=== PATIENT | female | born 1970 | race Caucasian/White ===

== ENCOUNTER 2016-09-01 10:20 | Emergency (ER) | payer OTHER ==
[~2016-09-01] VITALS: Ht 139.7 cm; Wt 59.0 kg
[2016-09-01 10:21] VITALS: TEMP 36.7; Ht 139.7 cm; Wt 59.0 kg
--- NOTE | 2016-09-01 10:50 | EMERGENCY ROOM VISIT NOTE ---
History First contact with patient: 10:27 Chief Complaint: LEG PAIN,LEG INJURY Stated Complaint: RIGHT LEG PAIN-NEAR KNEE AREA History of Present Illness The patient is a 46 year old female who presents to the Emergency Room with complaints of right knee pain. The patient states that she woke up this morning and states she has pain in the right knee and cannot bend it. The patient states that she noticed the lump on the anterior medial aspect of the knee. She denies any redness, warmth or fevers. She denies any injury. She denies any history of knee problems. She rates her discomfort a 9/10. The patient states that she is new to the area and does not have an orthopedist or a family doctor. Review of Systems A 10 system review of systems was completed with positives and pertinent negatives listed in the HPI. Social History Smoking Status: Current Every Day Smoker Housing Status: lives with friends Current/Historical Medications Scheduled Paroxetine (Paxil), 20 MG PO HS Prazosin Hcl (Prazosin), 1 MG PO HS Trazodone Hcl (Trazodone), 50 MG PO HS Scheduled PRN Oxycodone Ir (Roxicodone Ir), 1 TAB PO Q6 PRN for Pain Allergies Coded Allergies: Prochlorperazine (Verified Allergy, Unknown, ANAPHYLAXIS, 09/01/16) "WILL KILL THEM" Physical Exam Vital Signs Date Time Temp Pulse Resp B/P Pulse Ox O2 Delivery O2 Flow Rate FiO2 09/01/16 12:12 55 16 128/82 98 09/01/16 10:21 36.7 50 18 149/78 97 Room Air Physical Exam VITALS: Vitals are noted on the nurse's note and reviewed by myself. Vital signs stable. The patient is afebrile. GENERAL: This is a 46-year-old female, in no acute distress, nondiaphoretic, well-developed well-nourished. SKIN: The skin was without rashes, erythema, or bruising. There is no tenting of the skin. Capillary reflex less than 2 seconds. HEAD: Normocephalic atraumatic. EARS: The external ears are normal in appearance. EYES: Pupils equal round and reactive to light and accommodation. Conjunctivae without injection, sclerae without icterus. Extraocular movements intact. NOSE: Patent, turbinates without inflammation or discharge. MOUTH: Mucous membranes moist. Tonsils are not enlarged. Pharynx without erythema or exudate. Uvula midline. Airway patent. Tongue does not deviate. NECK: Supple without nuchal rigidity. No JVD. HEART: Regular rate and rhythm without murmurs gallops or rubs. LUNGS: Clear to auscultation bilaterally without wheezes, rales or rhonchi.No retractions or accessory muscle use. MUSCULOSKELETAL: No muscle atrophy, erythema, noted. There is a very small area of edema over the medial aspect of the proximal tibia. The patient is able to bend the knee but with much discomfort. The patient yells and lives her leg off the bed with any light palpation to the knee. The remaining extremities are unremarkable. NEURO: Patient was alert and oriented to person place and time. No focal neurological deficits. Medical Decision & Procedures ER Provider Diagnostic Interpretation: [~ rep ct add3]] RIGHT KNEE 3 VIEWS CLINICAL HISTORY: right knee pain Right pain COMPARISON: None. DISCUSSION: The bones and joint spaces appear intact. There is no evidence of fracture, dislocation or bony disease. There is no evidence for soft tissue swelling. IMPRESSION: Negative study. Medications Administered Medications (Trade) Dose Ordered Sig/Dottie Route Start Time Stop Time Status Last Admin Dose Admin Oxycodone HCl (Roxicodone Immediate Rel Tab) 5 mg NOW STAT PO 09/01/16 11:46 09/01/16 11:47 DC 09/01/16 11:59 5 MG ED Course The patient was seen and examined. Previous visits were reviewed. The patient presents with right knee pain. The patient's complaints are completely out of proportion to examination. The patient does not have any erythema, warmth, obvious swelling, ecchymosis to the right knee. She screams with any light touch of the leg. The leg is soft and she does have good movement of the leg. She has sensation. I do not suspect compartment syndrome. An x-ray was obtained does not reveal any acute abnormality. I did order an ultrasound of the lower extremity to evaluate for possible DVT or abdullahi's cyst. The patient went to the ultrasound but states she could not tolerate touching her leg. I did give her an oxycodone. She refuses the ultrasound at this time and states she will return if it worsens. The patient was given a knee immobilizer, crutches and a small prescription for oxycodone. She should contact orthopedics to schedule a follow-up appointment. She should return to the emergency Department with any worsening symptoms. Medical Decision The differential diagnosis includes bursitis, cellulitis, septic joint, ligamentous injury, sprain, strain, DVT, Abdullahi's cyst, among others [facility] Drug Monitoring Program Search Results: patient reviewed within database Drug Monitoring Findings: The patient has had an occasional narcotic prescriptions filled over the last several months but nothing since last year. Impression Primary Impression: Knee pain Departure Information Dispostion Home / Self-Care Condition GOOD Prescriptions Oxycodone Ir (Roxicodone Ir) 5 Mg Tab 1 TAB PO Q6 Y for Pain, #12 TAB For Initial Treatment Prov: Marissa Nicole PA-C 09/01/16 Referrals No Doctor, Assigned (PCP) Carmine Davis D.O. Patient Instructions Knee Pain, My [facility] Additional Instructions Ibuprofen 600 mg every 6-8 hours for moderate pain Oxy IR 1-2 tablets every 4-6 hrs as needed for worse pain. No driving or alcohol use with Oxy IR. Wear the immobilizer when up and about over the next 5-7 days; use crutches with weightbearing as tolerated Contact orthopedics today to schedule a follow-up appointment for further evaluation and management Return with any redness, swelling, warmth, worsening symptoms Problem Qualifiers Primary Impression: Knee pain Laterality: right Chronicity: acute Qualified Codes: M25.561 - Pain in right knee
[2016-09-01] MEDS ORDERED: TRAZ50TA35 PO (11:17)
[2016-09-01] MEDS ORDERED: PARO1TAB27 PO (11:17)
[2016-09-01] MEDS ORDERED: PRAZ1CAP10 PO (11:20)
--- NOTE | 2016-09-01 11:23 | DIAGNOSTIC IMAGING REPORT ---
RIGHT KNEE 3 VIEWS CLINICAL HISTORY: right knee pain Right pain COMPARISON: None. DISCUSSION: The bones and joint spaces appear intact. There is no evidence of fracture, dislocation or bony disease. There is no evidence for soft tissue swelling. IMPRESSION: Negative study. Electronically signed by: Nash Antoine M.D. 09/01/2016 11:22 AM Dictated Date/Time: 09/01/2016 11:21 AM
[2016-09-01] MEDS ORDERED: OXYCODONE HCL IR 5 MG TAB (IMMEDIATE RELEASE) PO STA (11:46)
[2016-09-01] MEDS ORDERED: OXYC1TAB3 PO (11:48)
[2016-09-01 12:12] VITALS: BP 128/82; PULSE 55; O2SAT 98
== END 2016-09-01 12:15 | disposition home or self-care (01) ==
LOC: C.EDB 10:22
DX: M25.561 Pain in right knee (principal); F17.210 Nicotine dependence, cigarettes, uncomplicated; Z79.899 Other long term (current) drug therapy

== ENCOUNTER 2016-10-14 11:59 | Emergency (ER) | payer OTHER ==
[~2016-10-14] VITALS: Ht 139.7 cm; Wt 61.1 kg
[~2016-10-14 11:59] MED LIST: OXYC1TAB3 PO; PARO1TAB27 PO; PRAZ1CAP10 PO; TRAZ50TA35 PO
[2016-10-14 12:06] VITALS: TEMP 36.4; Ht 139.7 cm; Wt 61.1 kg
--- NOTE | 2016-10-14 13:12 | DIAGNOSTIC IMAGING REPORT ---
RIGHT WRIST W/NAVICULAR MIN 3 VIEWS CLINICAL HISTORY: right, eval fx Right trauma. Pain. COMPARISON: None. DISCUSSION: The bones and joint spaces appear intact. There is no evidence of fracture, dislocation or bony disease. There is no evidence for soft tissue swelling. IMPRESSION: Negative study. Electronically signed by: Nash Antoine M.D. 10/14/2016 1:10 PM Dictated Date/Time: 10/14/2016 1:10 PM
[2016-10-14] MEDS ORDERED: HYDR-5688 PO (13:52)
--- NOTE | 2016-10-14 13:53 | EMERGENCY ROOM VISIT NOTE ---
ED Visit Note First contact with patient: 12:12 CHIEF COMPLAINT: Right wrist injury at work today Patient is a [id number] 46-year-old white female who presents to the emergency department for evaluation of right wrist pain. 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 She notes landing on the extended right wrist. She complains of pain in the dorsum of the wrist that she rates a 7/10. This patient complains of moderate constant wrist pain today after a fall. The pain is worse with any movement of the wrist. No other injury. REVIEW OF SYSTEMS: Review of systems as per HPI. All other systems reviewed were negative. At least 6 systems reviewed. PMH: Electronic medical records are reviewed and summarized as above/below. See Problem List. SOCIAL HISTORY: Patient lives at home. Smoker. PHYSICAL EXAM: Vital Signs: Reviewed Nurse's notes. MENTAL STATUS: Alert and oriented. WRIST: Examination of the right wrist does not demonstrate any obvious deformity. Skin is intact. There is no ecchymosis or soft tissue swelling noted. She is tenderness to palpation over the dorsum of the distal radius region, over the radial aspect of the distal radius and in the anatomic snuffbox. There is no pain over the ulnar styloid. No pain in the midshaft of the radius and the ulna. No pain over the proximal radial head and no elbow joint effusion is palpable. She can pronate, supinate and flex and extend at her elbow fully without discomfort. She does have discomfort with wrist extension and flexion. Radial and ulnar pulses are easily palpable. Capillary refills less than 2 seconds. EMERGENCY DEPARTMENT COURSE: X-ray of the right wrist did not show any obvious fracture. Given her anatomic snuffbox tenderness however, she was placed in a thumb spica Ortho-Glass splint and instructed on follow-up with her worker's compensation physician or orthopedic surgery as covered by her worker's compensation insurance. Possibility of an occult scaphoid fracture was discussed with the patient. Differential diagnoses also included sprain, dorsal impaction injury, among others. He was given 1 Munster 5 mg tablet prior to discharge. She rated her pain a 0/10 at discharge. RIGHT WRIST W/NAVICULAR MIN 3 VIEWS CLINICAL HISTORY: right, eval fx Right trauma. Pain. COMPARISON: None. DISCUSSION: The bones and joint spaces appear intact. There is no evidence of fracture, dislocation or bony disease. There is no evidence for soft tissue swelling. IMPRESSION: Negative study. Problem List Medical Problems: (1) Anxiety Status: Chronic (2) Knee pain Status: Resolved (3) Knee pain Status: Resolved Surgical Problems: (1) Status post herniorrhaphy Status: Resolved (2) Status post hysterectomy Status: Resolved Current/Historical Medications Scheduled Paroxetine (Paxil), 20 MG PO HS Prazosin Hcl (Prazosin), 1 MG PO HS Scheduled PRN Hydrocodone/Acetaminophen 5MG/325MG (Munster 5MG/325MG), 1-2 TABLETS PO Q4 PRN for Pain Allergies Coded Allergies: Prochlorperazine (Verified Allergy, Unknown, ANAPHYLAXIS, 10/14/16) "WILL KILL THEM" Vital Signs Date Time Temp Pulse Resp B/P Pulse Ox O2 Delivery O2 Flow Rate FiO2 10/14/16 14:06 66 17 147/102 98 10/14/16 13:51 66 17 147/102 98 Room Air 10/14/16 12:06 36.4 73 18 129/84 96 Room Air Medications Administered Medications (Trade) Dose Ordered Sig/Dottie Route Start Time Stop Time Status Last Admin Dose Admin Acetaminophen/ Hydrocodone Bitart (Munster 5/325 Tab) 1 tab NOW STAT PO 10/14/16 13:54 10/14/16 13:55 DC 10/14/16 14:00 1 TAB Departure Information Impression Primary Impression: Right wrist injury Additional Impressions: Fall Work related injury Prescriptions Hydrocodone/Acetaminophen 5MG/325MG (Munster 5MG/325MG) Tab 1-2 TABLETS PO Q4 Y for Pain, #20 TAB For Initial Treatment Prov: Lindsay Cha PA 10/14/16 Referrals No Doctor, Assigned (PCP) Patient Instructions My [facility] Additional Instructions DO NOT drive, drink alcohol, operate machinery, or perform dangerous activities today. You were given medications in the ER that can affect your ability to safely function or operate a vehicle. Hydrocodone/Acetaminophen (Munster) 5/325 mg: Take 1-2 pills every four hours for breakthrough pain. Avoid alcohol, operating machinery or dangerous equipment, working on ladders or roofs, DRIVING, or situations where being under the influence may be dangerous. It is recommended to use an zfxa-hwm-tiqudow stool softener such as Colace, 100mg twice daily while taking this medication to avoid constipation. Ibuprofen(Motrin, Advil) may be used for fever or pain. Use 600mg every six hours as needed. Take with food. Avoid using more than 2400mg in a 24 hour period. Do not use 2400mg per day for more than three consecutive days without physician direction. Prolonged inappropriate use can lead to stomach upset or ulcers. This medication can be taken if you need to drive, work, or perform activities which may be dangerous when taking narcotic pain medication. (AND/OR) Acetaminophen(Tylenol) may be used for fever or pain. Use 1000mg every six hours as needed. Avoid using more than 3000mg in a 24 hour period. This medication can be taken if you need to drive, work, or perform activities which may be dangerous when taking narcotic pain medication. Ice compresses for 20 minutes at a time four times daily for 2-3 days. Rest and elevate your injury. Do not get the splint wet. If your splint feels excessively tight, you have worsening pain, develop numbness or tingling, or your digits appear blue, loosen the rosalva wrap. Then reapply the rosalva wrap gently without removing the splint. If your symptoms are not quickly relieved return to the ER for re- evaluation. Continue current medications. Return to the ER immediately for any numbness, tingling, severe pain, extreme swelling in the extremity or as needed. Follow-up with orthopedic surgery as covered by your worker's compensation insurance. Problem Qualifiers Primary Impression: Right wrist injury Encounter type: initial encounter Qualified Codes: S69.91XA - Unspecified injury of right wrist, hand and finger(s), initial encounter Additional Impressions: Fall Encounter type: initial encounter Qualified Codes: W19.XXXA - Unspecified fall, initial encounter
[2016-10-14] MEDS ORDERED: HYDROCODONE/ACETAMOPHEN 5/325MG TAB PO STA (13:54)
[2016-10-14 14:06] VITALS: BP 147/102; PULSE 66; O2SAT 98
== END 2016-10-14 14:08 | disposition home or self-care (01) ==
LOC: C.EDB 12:01 → C.EDD 14:08
DX: S69.91XA Unspecified injury of right wrist, hand and finger(s), initial encounter (principal); W01.0XXA Fall on same level from slipping, tripping and stumbling without subsequent striking against object, initial encounter; Y92.511 Restaurant or cafe as the place of occurrence of the external cause; Y99.0 Civilian activity done for income or pay; F41.9 Anxiety disorder, unspecified; Z79.899 Other long term (current) drug therapy; F17.210 Nicotine dependence, cigarettes, uncomplicated

== ENCOUNTER → 2017-02-18 | Outpatient (CLI) | payer OTHER ==
[~2017-02-18] MED LIST changes: +HYDR-5688 PO; -OXYC1TAB3 PO; -TRAZ50TA35 PO
--- NOTE | 2017-02-18 13:03 | DIAGNOSTIC IMAGING REPORT ---
LEFT FOOT MIN 3 VIEWS ROUTINE CLINICAL HISTORY: M79.672 Foot pain, [id number] COMPARISON: None. DISCUSSION: No fractures or dislocations are visualized. There are no erosive or destructive changes. There is a tiny Achilles insertional spur. IMPRESSION: 1. No acute fractures 2. No evidence of erosive disease Electronically signed by: Matt Bravo M.D. 02/18/2017 1:02 PM Dictated Date/Time: 02/18/2017 1:01 PM
--- NOTE | 2017-02-18 13:05 | DIAGNOSTIC IMAGING REPORT ---
LEFT KNEE 1 OR 2 VIEWS ROUTINE HISTORY: 46 years Female M25.569 Knee painM25.362 left knee instability COMPARISON: None available TECHNIQUE: Frontal and lateral views of the left knee FINDINGS: There is no acute fracture, dislocation or significant degenerative change identified involving the left knee. There is a trace knee joint effusion. Negative for radiopaque foreign body. IMPRESSION: Trace knee joint effusion without acute fracture or dislocation. The above report was generated using voice recognition software. It may contain grammatical, syntax or spelling errors. Electronically signed by: Nicolas Lucio M.D. 02/18/2017 1:04 PM Dictated Date/Time: 02/18/2017 1:03 PM
--- NOTE | 2017-02-18 13:05 | DIAGNOSTIC IMAGING REPORT ---
RIGHT FOOT MIN 3 VIEWS ROUTINE CLINICAL HISTORY: FOOT PAIN Right pain. Trauma. COMPARISON: None. DISCUSSION: The bones and joint spaces appear intact. There is no evidence of fracture, dislocation or bony disease. Mild soft tissue edema IMPRESSION: Mild soft tissue edema. No acute bony abnormality. The above report was generated using voice recognition software. It may contain grammatical, syntax or spelling errors. Electronically signed by: Nash Antoine M.D. 02/18/2017 1:03 PM Dictated Date/Time: 02/18/2017 1:02 PM
--- NOTE | 2017-02-18 13:05 | DIAGNOSTIC IMAGING REPORT ---
RIGHT KNEE 1 OR 2 VIEWS ROUTINE CLINICAL HISTORY: 46 years-old Female presenting with bilateral foot and knee pain, fall, "left foot gives out". TECHNIQUE: Frontal and lateral views of the right knee were obtained. COMPARISON: 09/01/2016. FINDINGS: Knee joint congruent. No joint space loss. No significant degenerative change. No acute fracture or malalignment. Trace knee joint effusion may be present. Remaining soft tissues normal. IMPRESSION: 1. No acute osseous injury of the right knee. 2. Trace knee joint effusion. Electronically signed by: Froilan Crenshaw M.D. 02/18/2017 1:04 PM Dictated Date/Time: 02/18/2017 1:02 PM
[2017-02-18 14:34] LABS: MEAN CELL VOLUME 96.1 fL (80-100); MEAN CORPUSCULAR HEMOGLOBIN 32.3 pg (25-34); MEAN CORPUSCULAR HGB CONC 33.6 g/dl (32-36); MEAN PLATELET VOLUME 10.8 fL (7.4-10.4); PLATELET COUNT 369 K/uL (130-400); RED BLOOD COUNT 4.58 M/uL (4.2-5.4); WHITE BLOOD COUNT 8.42 K/uL (4.8-10.8)
[2017-02-18 15:03] LABS: BLOOD UREA NITROGEN 10 mg/dl (7-18); BUN/CREATININE RATIO 12.9 (10-20); CALCIUM 9.5 mg/dl (8.5-10.1); CARBON DIOXIDE 29 mmol/L (21-32); CHLORIDE 107 mmol/L (98-107); CREATININE 0.76 mg/dl (0.60-1.20); GLUCOSE 77 mg/dl (70-99); SODIUM 141 mmol/L (136-145)
[2017-02-18 15:06] LABS: ALKALINE PHOSPHATASE 120 U/L (45-117); ALT/SGPT 44 U/L (12-78); AST/SGOT 33 U/L (15-37); CHOLESTEROL 201 mg/dl (0-200); CHOLESTEROL/HDL RATIO 4.3; HDL CHOLESTEROL 47 mg/dl; LDL CHOLESTEROL CALCULATED 112 mg/dl; TRIGLYCERIDES 212 mg/dl (0-150); VERY LOW DENSITY LIPOPROT CALC 42 mg/dl
== END | disposition home or self-care (01) ==
LOC: C.RAD1850 12:31
PROVIDERS: ATTEND Internal Medicine
DX: M79.672 Pain in left foot (principal); M25.362 Other instability, left knee; M25.569 Pain in unspecified knee

== ENCOUNTER 2017-06-17 10:40 | Emergency (ER) | payer OTHER ==
[~2017-06-17] VITALS: Ht 139.7 cm; Wt 66.0 kg
[~2017-06-17 10:40] MED LIST changes: -HYDR-5688 PO
[2017-06-17 10:44] VITALS: Ht 139.7 cm; Wt 66.0 kg
--- NOTE | 2017-06-17 11:52 | DIAGNOSTIC IMAGING REPORT ---
L FOOT MIN 3 VIEWS ROUTINE CLINICAL HISTORY: Left foot pain COMPARISON: 02/18/2017 DISCUSSION: No fractures or dislocations are visualized. There is a tiny Achilles insertional spur and tiny plantar calcaneal spur. There are no erosive or destructive changes. IMPRESSION: Tiny calcaneal spurs unchanged the preceding study. No fractures dislocations or destructive lesions are visualized. Electronically signed by: Matt Bravo M.D. 06/17/2017 11:51 AM Dictated Date/Time: 06/17/2017 11:50 AM
[2017-06-17] MEDS ORDERED: METH4PAK PO ×2 (11:56→13:11)
[2017-06-17] MEDS ORDERED: TRAM-10 PO ×2 (11:56→13:11)
[2017-06-17 13:35] VITALS: BP 114/75; PULSE 63; TEMP 36.3; O2SAT 95
--- NOTE | 2017-06-17 19:50 | EMERGENCY ROOM VISIT NOTE ---
ED Visit Note First contact with patient: 10:58 Chief Complaint: Left foot pain. History of Present Illness: Ms. Parks is a 47-year-old white female who ambulates into the ED with a fracture boot and cane complaining of left heel pain. Historically patient reports she has been having ongoing pain since January, approximately 4 months ago. She was seen by the PCP and x-rays of her bilateral feet were taken which showed that she had a small calcaneal spur. At that time she was placed in a fracture boot and was instructed on the use of a cane. Patient reports that she has been having increasing pain in the left foot since she was initially evaluated 4 months ago. Currently she describes a burning sensation from the plantar surface of the left calcaneus radiating up into the gastrocnemius. She rates her her discomfort 8/10. Her pain worsens with ambulation and palpation. She has not identified any alleviating factors related to the pain. She has been using xslm-ubu-iwcuerg medications without relief of her discomfort. She denies any associated symptoms including back pain, left lower extremity weakness/numbness/tingling, recent new trauma, swelling, calf redness/warmth, skin eruptions, fevers, palpitations, previous clots, claudication, recent surgery/inactivity/extended travel. Review of Systems: As noted above in history of present illness. 8 body systems were reviewed and found to be negative as noted above. Past Medical History: Unspecified kidney disease, anxiety, status post hysterectomy, hemorrhoidectomy Current Medications: Paxil. Allergies to Medications: Promethazine. Social History: Patient is currently employed; she feels safe in her home environment; she admits to tobacco use. Physical Examination: Vital Signs: Date Time Temp Pulse Resp B/P (MAP) Pulse Ox O2 Delivery O2 Flow Rate FiO2 06/17/17 10:44 36.3 63 18 114/75 95 Room Air GENERAL: 47-year-old female in moderate distress due to pain, nontoxic-appearing , afebrile and hemodynamically stable. Patient is tearful and anxious. NEUROLOGICAL: Awake, alert and oriented to person, place and time. Answering questions appropriately and following commands. SKIN: Warm, dry and pink. No soft tissue eruptions or trauma noted. LEFT LOWER LEG: No gross bony deformity. No tenderness throughout the knee, anterior lower leg, ankle or foot. Moderate tenderness over the plantar surface of the calcaneus and extending superior through the Achilles tendon and distal aspect of the gastrocnemius. I do not appreciate any calf tenderness or cords. There is no swelling or erythema. The skin does not appear cellulitic or infected. Full range of motion in flexion and extension of the knee, plantar flexion, dorsiflexion, inversion and eversion of the ankle and flexion and extension of all toes. Throughout the foot the skin was warm and pink and capillary refill is brisk. She is able to distinguish light sensations through all dermatomes of the foot. ED Course: Patient is assessed as noted above. Patient's medication list was reviewed. Left Foot X-Rays: Were read by myself and the radiologist showing a tiny calcaneal spur unchanged from previous x-rays and no fractures or dislocations. Patient was offered pain medication and refused. Patient was placed on nonweightbearing crutches. Patient was educated about today's findings and instructed on her treatment plan ; she verbalized understanding and agreement with this plan. Clinical Impression: Left calcaneus and Achilles tendon pain. Decision-Making: Initially my differential diagnosis I considered fracture, heel spur, Achilles tendinitis, gastrocnemius strain, Achilles tendon rupture and other causes. Disposition: Patient discharged home in stable condition accompanied by male friend; prior to departure she was reassessed and subjectively reported she was feeling the same. Plan: Comfort measures were discussed with the patient including rest, elevation, nonweight bearing crutch use, alternating 50 mg of Ultram and 650 mg of acetaminophen every 3 hours and a Medrol Dosepak. Patient was encouraged to follow-up with her primary care provider or keep your upcoming appointment with orthopedics for definitive care and treatment. Patient was encouraged return ED for worsening pain, skin redness/swelling, fevers or any new/concerning symptoms.
== END 2017-06-17 12:55 | disposition home or self-care (01) ==
LOC: C.EDB 10:42 → C.EDD 12:55
DX: M79.672 Pain in left foot (principal); Z90.710 Acquired absence of both cervix and uterus; F41.9 Anxiety disorder, unspecified; Z72.0 Tobacco use; Z98.890 Other specified postprocedural states; Z79.899 Other long term (current) drug therapy

== ENCOUNTER → 2017-07-22 | Outpatient (CLI) | payer OTHER ==
[~2017-07-22] MED LIST changes: +CEFD250S3 PO; +CEFD300C2 PO; +CLR10 PO; +CRIS2OIN TOP; +DICL50TA3 PO; +FLUO0.1S12 OPB; +IBUP-1050 PO; +NYSTCRE11 TOP; -PRAZ1CAP10 PO; +PROP10TA7 PO; +TRAM-10 PO; +TRMO115 TOP
--- NOTE | 2017-07-22 11:47 | DIAGNOSTIC IMAGING REPORT ---
L SHOULDER MIN 2 VIEWS ROUTINE CLINICAL HISTORY: M79.603 left shoulder pain COMPARISON: None. DISCUSSION: No fractures or dislocations are visualized. There are no visible periarticular calcifications. The heart appears enlarged. IMPRESSION: 1. No conventional radiographic abnormalities of the left shoulder 2. Suspected cardiomegaly Electronically signed by: Matt Bravo M.D. 07/22/2017 11:46 AM Dictated Date/Time: 07/22/2017 11:45 AM
[2017-07-22 13:19] LABS: HEMOGLOBIN A1C 5.6 % (4.5-5.6)
== END | disposition home or self-care (01) ==
LOC: C.RAD1850 10:36
PROVIDERS: ATTEND Physician Assistant
DX: Z13.1 Encounter for screening for diabetes mellitus (principal); M79.603 Pain in arm, unspecified

== ENCOUNTER → 2017-09-01 | Outpatient (CLI) | payer OTHER ==
[~2017-09-01] MED LIST changes: -CEFD250S3 PO; -CEFD300C2 PO; -CLR10 PO; -CRIS2OIN TOP; -DICL50TA3 PO; -FLUO0.1S12 OPB; +GADAVIST IV PRN; -IBUP-1050 PO; -NYSTCRE11 TOP; -PROP10TA7 PO; -TRMO115 TOP
--- NOTE | 2017-09-01 14:44 | DIAGNOSTIC IMAGING REPORT ---
MRI OF THE LEFT ANKLE/HINDFOOT WITH AND WITHOUT CONTRAST CLINICAL HISTORY: Persistent left ankle and heel pain. Evaluate Achilles tendon and plantar fasciitis. COMPARISON STUDY: Left foot radiographs June 17, 2017. TECHNIQUE: Utilizing 1.5 Magi magnet and dedicated coil, multiplanar, multiecho imaging of the left hind foot and ankle was performed pre and postcontrast administration. Injection of 6.5 cc of Gadavist IV was uneventful. FINDINGS: Talar dome is intact. Alignment of the left ankle is anatomic. There is no suspicious marrow replacement. There is no significant marrow edema. No erosions are identified. No mass or fluid collection is shown adjacent to the left ankle. The extensor, flexor and peroneal tendons are intact. No abnormality of the Achilles tendon is noted. There is no edema adjacent to the plantar fascia. There is minimal posterior and plantar calcaneal spurring. There is no evidence for a calcaneal fracture. Intrinsic ligaments of the left ankle appear intact. IMPRESSION: 1. Minimal posterior and plantar calcaneal spurring. Normal appearance of the Achilles tendon. No edema to suggest plantar fasciitis. 2. No significant internal derangement of the left ankle/hindfoot. Electronically signed by: Jt Quiroz M.D. 09/01/2017 2:43 PM Dictated Date/Time: 09/01/2017 2:19 PM
== END | disposition home or self-care (01) ==
LOC: C.MRI 12:17
PROVIDERS: ATTEND Podiatrist Foot & Ankle Surgery
DX: M76.62 Achilles tendinitis, left leg (principal); R26.2 Difficulty in walking, not elsewhere classified

== ENCOUNTER → 2017-09-22 | Outpatient (CLI) | payer OTHER ==
[~2017-09-22] MED LIST changes: -GADAVIST IV PRN
--- NOTE | 2017-09-22 12:22 | DIAGNOSTIC IMAGING REPORT ---
ENHANCED CT SCAN OF THE LEFT FOOT CT DOSE: CLINICAL HISTORY: M76.62,R26.2 left heel pain TECHNIQUE: The patient was scanned following administration 91 cc Optiray 320. Sagittal and coronal reformatted imaging was performed. A dose lowering technique was utilized adhering to the principles of ALARA. COMPARISON STUDY: MRI of the left hindfoot dated 09/01/2017 FINDINGS: No fractures are visualized. No soft tissue masses are evident. The Achilles tendon is of normal thickness. No bony destructive lesions are visualized. There are no pathologically enhancing lesions. There is a tiny Achilles insertional spur. IMPRESSION: 1. Tiny Achilles insertional spur 2. Otherwise unremarkable CT scan of the left foot Electronically signed by: Matt Bravo M.D. 09/22/2017 12:21 PM Dictated Date/Time: 09/22/2017 12:15 PM
== END | disposition home or self-care (01) ==
LOC: C.CTS 11:45
PROVIDERS: ATTEND Podiatrist Foot & Ankle Surgery
DX: M76.62 Achilles tendinitis, left leg (principal); R26.2 Difficulty in walking, not elsewhere classified

== ENCOUNTER → 2017-10-11 | Outpatient (CLI) | payer OTHER ==
--- NOTE | 2017-10-11 11:36 | DIAGNOSTIC IMAGING REPORT ---
CHEST 2 VIEWS ROUTINE CLINICAL HISTORY: Preoperative evaluation. COMPARISON STUDY: No previous studies for comparison. FINDINGS: Lung volumes are normal. There is no pneumothorax or pleural effusion. Hazy right lower lung opacity likely reflects epicardial fat pad or atelectasis. There is borderline cardiomegaly. Linear left lower lung opacity suggests atelectasis. There is no consolidation or evidence for pulmonary edema. IMPRESSION: 1. No acute cardiopulmonary findings. 2. Borderline cardiomegaly. Electronically signed by: Jt Quiroz M.D. 10/11/2017 11:35 AM Dictated Date/Time: 10/11/2017 11:34 AM
== END | disposition home or self-care (01) ==
LOC: C.RAD 10:34
PROVIDERS: ATTEND Podiatrist Foot & Ankle Surgery
DX: Z01.818 Encounter for other preprocedural examination (principal); I51.7 Cardiomegaly

== ENCOUNTER → 2017-11-02 | Day surgery (SDC) | payer OTHER ==
[2017-10-25 14:12] VITALS: BMI 32.0
--- NOTE | 2017-11-01 16:15 | HISTORY & PHYSICAL EXAMINATION ---
DATE OF ADMISSION: 11/02/2017 PREOPERATIVE HISTORY AND PHYSICAL HISTORY OF PRESENT ILLNESS: A 47-year-old female presents for preoperative evaluation, requesting surgery. Condition is located in the left foot, described as aching, constant, sharp, severe and tender. Condition was noted over a year ago, result of falling. She notes she has had multiple conservative treatments and describes an aching type associated pain. She notes she is unable to work 8-hour days and has had several days off due to discomfort. She notes at times the pain is so severe it wakes her up at night. Past treatments for this include CT, MRI, and radiographs, Cam walker. Due to the nature and severity of the discomfort, she is requesting surgical intervention. Other treatments that have been performed include immobilization, physical therapy, corticosteroid injections and oral medicine with little to no improvement. PAST SURGICAL HISTORY: Hernia repair in 2015, hysterectomy in 2014, and in 1986. PAST MEDICAL HISTORY: Skin disorder, anxiety disorder, depression, and arthritis. MEDICATIONS: Paxil, ____ tramadol, propranolol, ____ nystatin. ALLERGIES: COMPAZINE. FAMILY HISTORY: Unremarkable. SOCIAL HISTORY: The patient admits to tobacco use, history of 2 years of smoking. REVIEW OF SYSTEMS: Unremarkable except chief complaint. PHYSICAL EXAMINATION: VITAL SIGNS: BP 110/60, height 4 feet 11 inches, weight 160 pounds, body mass index 32. CONSTITUTIONAL: The patient appears well-developed and nourished with good attention to grooming and habits. HEAD AND FACE: Head is normocephalic and atraumatic without any gross head, face, or neck masses. EYES: Conjunctival and pupil reaction to light and accommodation are normal. EARS, NOSE, MOUTH, AND THROAT: Unremarkable. NECK: Neck is supple. Trachea is midline without any adenopathy or crepitance palpable. CARDIOVASCULAR: Normal S1, S2 without murmur, gallops, rubs, or clicks noted. Cardiovascular exam is normal. RESPIRATORY: Chest is symmetric. No scars are visible. No port or pacemaker. LUNGS: Clear to auscultation bilaterally and equal. GASTROINTESTINAL: Abdominal organs, bladder, and kidney show no abnormalities, masses, tenderness, or rigidity. LOWER EXTREMITIES: DP palpable. PT palpable. DERMATOLOGIC: No skin rash, subcutaneous nodules, lesions, or ulcers observed. NEUROLOGICAL: Touch, pin, vibratory pain, proprioception sensations are normal. Deep tendon reflexes normal. Epicritic sensation per [place] monofilament 5.07 is intact. MUSCULOSKELETAL: Muscle tone is normal. Muscle strength is 5/5 all groups tested. Decreased ankle joint range of motion knee flexed and extended. The left plantar fascia exhibits prominence pain to palpation plantar medial heel bilaterally. Pain precludes reliable exam, decreased ankle joint range of motion with knee flexed and extended. Nerve conduction reveals unremarkable with no evidence for polyneuropathy, myopathy or lumbosacral radiculopathy in the left leg on 08/17/2017. DATA: MRI from 09/01/2017, left ankle shows minimal posterior and plantar calcaneal spurring, normal appearance of the Achilles tendon. No edema to suggest plantar fasciitis. IMPRESSION: 1. Left heel spur syndrome, plantar fasciitis, left. 2. Achilles tendinitis, left. 3. Difficulty walking. 4. Pain lower extremity. PLAN: Reviewed conservative treatment options and offered conservative treatments consisting of rest, ice, analgesics, nonsteroidal anti-inflammatory drugs, night splints, physical therapy, steroid shots, stretching exercises, and orthotics. Due to nature and severity of the discomfort, she is requesting surgical intervention. SURGICAL PROCEDURE TO BE PERFORMED: Endoscopic plantar fasciotomy, left foot. This will be performed under general anesthesia as an outpatient at the hospital. The procedure, risks and complications fully reviewed with the patient. Consent form, foot diagram illustration reviewed in all their entirety. All the patient's questions answered. Complications were discussed in detail with the patient including pain, infection, swelling that may or may not be excessive, pins and needles feeling, numbness, metatarsalgia, excessive bleeding, delayed or nonhealing bone, delayed or nonhealing skin, enlarged scar, failure of the procedure, reoccurrence or worsening condition which may not require further surgery, adverse reaction to anesthesia, allergic reaction to suture or other implant material. The patient will be required to be in a surgery shoe for a minimum of 1-2 weeks and not return to sneaker for 2-4 weeks depending on postop edema. The patient is aware that this is an elective type procedure and I recommended a second opinion. They stated they understood. Consent form signed with a copy of foot diagram issued to the patient. At the time of the preoperative appointment, prescriptions for Percocet and Keflex were dispensed as well as for a new Cam walker. The patient will return to the office for a postop check or sooner if medically necessary. Instructed to keep dressing clean, dry, and intact until seen at the office.
[~2017-11-02] VITALS: Ht 149.9 cm; Wt 72.7 kg
[~2017-11-02] MED LIST changes: +ATROPINE SULFATE 0.1 MG/ML 5ML SYR IV PRN; +BUPIVACAINE 0.25% 30 ML VIAL ONE; +BUPIVACAINE 0.5 % 5 MG/1 ML MPF 30ML VIAL ONE; +CEFAZOLIN SOD 1000MG/7.5 ML IV PUSH IV ONE; +CLR10 PO; +CRIS2OIN TOP; +DEXAMETHASONE SOD INJ 4 MG/ML VIAL ONE; +DICL50TA3 PO; +EpHEDrine SULFATE INJ 50 MG/ML AMP IV PRN; +FENTANYL CITRATE INJ 50 MCG/1 ML 2 ML VIAL ONE; +FLUO0.1S12 OPB; +IBUP-1050 PO; +LACTATED RINGER'S 1000ML 1,000 ML IV SCH; +LIDOCAINE HCL 2% 2 ML VIAL (20MG/ML) ONE; +MIDAZOLAM HCL 1 MG/ML 2ML VIAL ONE; +NURSING VERBAL MED ORDER ONE; +NYSTCRE11 TOP; +ONDANSETRON INJ 2 MG/ML 2 ML VIAL ONE; +PROP10TA7 PO; +PROPOFOL IV EMULSION 10 MG/ML 20 ML VIAL IV ONE; +ROPIVACAINE 0.5% 5 MG/ML 30 ML VIAL ONE; +SODIUM CHLORIDE 0.9% 1000ML 1,000 ML IV SCH; +TRMO115 TOP
[2017-11-02 05:40] VITALS: BP 106/74; PULSE 65; TEMP 36.5; O2SAT 93; Ht 149.9 cm; Wt 72.7 kg
--- NOTE | 2017-11-02 06:57 | History & Physical Bridge Note ---
H&P Re-Evaluation Bridge Note: I have examined the patient, reviewed the History & Physical and in the interval since the performance of the History & Physical I have noted the following changes of clinical significance: No changes noted
--- NOTE | 2017-11-02 07:00 | Discharge Instructions ---
Discharge Instructions Date of Service Nov 02, 2017. Admission Reason for Admission: Heel Spur Syndrome, Achilles Tendonitis Discharge Discharge Diagnosis / Problem: same as admission reason Discharge Goals Goal(s): Decrease discomfort Activity Recommendations Activity Limitations: as noted below Medications: * Resume previous medications unless instructed by your surgeon. * Take your medications as prescribed. Call our office ([phone]) at any time, if you experience severe pain that does not subside shortly after taking your pain medication. Activity: * You may walk on your operated foot/ankle using the surgical shoe or cast/splint. Do not put any weight on your operated foot/ankle without wearing the surgical shoe or cast sandal.. Special Care: * Keep your bandage clean and dry. Do not remove your bandage unless otherwise instructed. A small amount of blood may appear on the bandage over the surgical site. Call our office ([phone]) if you bandage becomes blood-soaked or wet. * Elevate your operated foot/ankle on pillows, above the level of your heart, as often as possible during the first 2-3 days following surgery. Keep your knee flexed slightly with a pillow under your knee when you elevate your foot/ankle. * Apply a ice bag to your foot/ankle over the operative site for 20-30 minutes out of each hour while you are awake. Do not allow the ice bag to directly contact bare skin. * Avoid bumping or handling any pins visible in your toes. If any pin feels or appears loose, call the office ([phone]). * Take your oral temperature in the morning and at bedtime. Call our office ([phone]) if your temperature rises above 101 degrees Fahrenheit. Call your surgeon's office at ([phone]) for any problems or concerns such as excessive bleeding and/or pain unrelieved by your prescribed pain medications. If you have any questions, please do not hesitate to ask them. Avoid all tobacco products. If you need help to stop smoking, call [facility]IT[facility] at . This is a free call. Follow-up: Follow-up with Dr. Seymour . Current Hospital Diet Patient's current hospital diet: Discharge Diet Recommended Diet: Regular Diet Pending Studies Studies pending at discharge: no Medical Emergencies . Who to Call and When: Medical Emergencies: If at any time you feel your situation is an emergency, please call 911 immediately. . Non-Emergent Contact Non-Emergency issues call your: Primary Care Provider . "Provider Documentation" section prepared by Aviva Krishnan. .
--- NOTE | 2017-11-02 08:10 | [facility] Post Operative Brief Note ---
Immediate Operative Summary Operative Date Nov 02, 2017. Pre-Operative Diagnosis 1. Left heel spur syndrome, plantar fasciitis, left. 2. Achilles tendinitis, left. 3. Difficulty walking. 4. Pain lower extremity Post-Operative Diagnosis 1. Left heel spur syndrome, plantar fasciitis, left. 2. Achilles tendinitis, left. 3. Difficulty walking. 4. Pain lower extremity Procedure(s) Performed Endoscopic plantarfasciotomy left foot Surgeon Dr. Aviva Seymour, D.P.M. Fix[facility] Boarding Room Surgeon(s) None Estimated Blood Loss 0ml Findings Consistent with Post-Op Diagnosis Specimens None per surgeon Anesthesia Type General Complication(s) none
--- NOTE | 2017-11-02 08:53 | OPERATIVE REPORT ---
DATE OF OPERATION: 11/02/2017 PREOPERATIVE DIAGNOSES: Heel spur syndrome, left plantar fasciitis, pain left foot. POSTOPERATIVE DIAGNOSES: Same. PROCEDURE: Endoscopic plantar fasciotomy, left foot. ANESTHESIA: General with regional field block performed by anesthesia. HEMOSTASIS: Pneumatic ankle tourniquet inflated to a level of 250 mmHg for a total tourniquet time of 12 minutes. ESTIMATED BLOOD LOSS: Minimal. MATERIALS: 3-0 Vicryl, 4-0 nylon. HISTOPATHOLOGY: None. INJECTABLES: None. COMPLICATIONS: The patient tolerated the procedure and anesthesia well without complications, transferred to recovery room with vital signs stable and neurovascular status intact. DESCRIPTION OF PROCEDURE: The patient was brought to the OR and placed on the OR table in supine position. Upon completion of regional and general anesthesia by the anesthesia department, a well-padded tourniquet was applied to the left ankle and the extremity was scrubbed, prepped and draped in the usual aseptic fashion. Attention was directed to the left foot where approximately 3.5 cm distal to the posterior aspect of the calcaneus, small incision was made between interruption of the skin lines from the plantar and medial skin on the plantar medial aspect of the left foot. This was carefully deepened with a hemostat to preserve all neurovascular structures and the inferior aspect of the plantar fascia band was identified, cannula was taken along the inferior aspect of the band to the lateral aspect and a lateral incision was made for exchange of the cannula. The cannula was irrigated and cleaned. The camera was placed which visualized a prominent plantar fascia band. This was incised using a hook blade from medial to lateral, the cannula and trocar were replaced for any accessory fibers and some additional accessory fibers were cut. There were pictures taken throughout the case. The prominence of the plantar fascia was no longer prominent. Wound was copiously lavaged with normal saline through the cannula. Closure began of the deep structures using 3-0 Vicryl in a box stitch technique. Skin margins were closed using 4-0 nylon in a simple interrupted fashion and a retention suture fashion simple medially. A dry sterile compressive dressing consisting of Adaptic, 4 x 4's, Debra and an [place] was applied. The patient tolerated the procedure and anesthesia well without complications and transferred to recovery room with vital signs stable and neurovascular status intact. I attest to the content of the Intraoperative Record and any orders documented therein. Any exception s are noted below.
--- NOTE | 2017-11-02 08:58 | Anesthesiology Progress Note ---
Anesthesia Post Op Note Date & Time Nov 02, 2017 at 08:58 Vital Signs Pain Intensity: 0 Vital Signs Past 12 Hours Date Time Temp Pulse Resp B/P (MAP) Pulse Ox O2 Delivery O2 Flow Rate FiO2 11/02/17 08:55 36.4 65 17 119/79 (88) 93 Room Air 11/02/17 08:45 65 15 117/76 (80) 93 Room Air 11/02/17 08:35 67 14 107/69 (90) 98 Oxymask 10 11/02/17 08:25 62 21 118/74 (89) 99 Oxymask 10 11/02/17 08:15 36.6 67 16 134/112 (118) 99 Oxymask 10 11/02/17 05:40 36.5 65 18 106/74 (85) 93 Room Air Notes Mental Status: alert / awake / arousable, participated in evaluation Pt Amnestic to Procedure: Yes Nausea / Vomiting: adequately controlled Pain: adequately controlled Airway Patency, RR, SpO2: stable & adequate BP & HR: stable & adequate Hydration State: stable & adequate Anesthetic Complications: no major complications apparent
[2017-11-02 09:10] VITALS: BP 120/66; PULSE 66; TEMP 36.6; O2SAT 91
[2017-11-02 09:40] VITALS: BP 118/74; PULSE 75; O2SAT 91
[2017-11-02 10:10] VITALS: BP 96/52; PULSE 79; TEMP 36.6; O2SAT 93
== END | disposition home or self-care (01) ==
LOC: C.ACU 04:48
PROVIDERS: ATTEND Podiatrist Foot & Ankle Surgery
DX: M77.32 Calcaneal spur, left foot (principal); M72.2 Plantar fascial fibromatosis; M19.90 Unspecified osteoarthritis, unspecified site; F17.200 Nicotine dependence, unspecified, uncomplicated; F32.9 Major depressive disorder, single episode, unspecified; F41.9 Anxiety disorder, unspecified; Z88.8 Allergy status to other drugs, medicaments and biological substances; Z79.899 Other long term (current) drug therapy; Z90.710 Acquired absence of both cervix and uterus; Z98.890 Other specified postprocedural states

== ENCOUNTER 2018-03-03 13:24 | Emergency (ER) | payer OTHER ==
[~2018-03-03] VITALS: Ht 147.3 cm; Wt 78.0 kg
[~2018-03-03 13:24] MED LIST changes: -ATROPINE SULFATE 0.1 MG/ML 5ML SYR IV PRN; -BUPIVACAINE 0.25% 30 ML VIAL ONE; -BUPIVACAINE 0.5 % 5 MG/1 ML MPF 30ML VIAL ONE; -CEFAZOLIN SOD 1000MG/7.5 ML IV PUSH IV ONE; -DEXAMETHASONE SOD INJ 4 MG/ML VIAL ONE; -EpHEDrine SULFATE INJ 50 MG/ML AMP IV PRN; -FENTANYL CITRATE INJ 50 MCG/1 ML 2 ML VIAL ONE; -LACTATED RINGER'S 1000ML 1,000 ML IV SCH; -LIDOCAINE HCL 2% 2 ML VIAL (20MG/ML) ONE; -MIDAZOLAM HCL 1 MG/ML 2ML VIAL ONE; -NURSING VERBAL MED ORDER ONE; -ONDANSETRON INJ 2 MG/ML 2 ML VIAL ONE; -PROPOFOL IV EMULSION 10 MG/ML 20 ML VIAL IV ONE; -ROPIVACAINE 0.5% 5 MG/ML 30 ML VIAL ONE; -SODIUM CHLORIDE 0.9% 1000ML 1,000 ML IV SCH
[2018-03-03 13:29] VITALS: TEMP 36.7; Ht 147.3 cm; Wt 78.0 kg
[2018-03-03] MEDS ORDERED: ONDANSETRON INJ 2 MG/ML 2 ML VIAL IV STA (14:18)
[2018-03-03] MEDS ORDERED: SODIUM CHLORIDE 0.9% 1000ML 1,000 ML IV STA (14:18)
--- NOTE | 2018-03-03 14:19 | EMERGENCY ROOM VISIT NOTE ---
History Report prepared by Christian: Dalia Paiz Under the Supervision of: Dr. Nura Tierney D.O. First contact with patient: 14:14 Chief Complaint: ABDOMINAL PAIN Stated Complaint: SIDE PAIN Nursing Triage Summary: triage note: Pt reports right lower abd pain x "a couple weeks." pt reports nausea. History of Present Illness The patient is a 47 year old female who presents to the Emergency Room with complaints of constant, worsening R-sided abdominal pain beginning a few weeks ago. She notes her pain radiates to her back, and worsens with pressure. The patient reports some nausea and vomiting. She notes feeling warm, but is unsure if she has a fever or hot flashes. The patient denies any rashes. She states her PCP Dr. Sifuentes referred her to the ED. The patient worsens when her abdomen is touched. She denies any rashes. The patient notes she still has her appendix and gallbladder. She notes she had a hysterectomy in 2014. Source of History: patient Onset: a few weeks ago Position: abdomen (right side) Modifying Factors (Worsening): other (pressure) Associated Symptoms: + nausea, + vomiting, + back pain, No rash Review of Systems See HPI for pertinent positives & negatives. A total of 10 systems reviewed and were otherwise negative. Past Medical & Surgical Medical Problems: (1) Anxiety (2) Knee pain (3) Knee pain Surgical Problems: (1) Status post herniorrhaphy (2) Status post hysterectomy Family History FHx: seizures Social History Smoking Status: Current Every Day Smoker Alcohol Use: none Housing Status: lives with friends Current/Historical Medications Scheduled Cefdinir (Omnicef), 6 ML PO Q12H Crisaborole (Eucrisa), 1 DOSE TOP BID Diclofenac (Voltaren), 50 MG PO Q8H Ibuprofen (Advil), 200 MG PO PRN Loratadine (Claritin), 10 MG PO QAM Paroxetine (Paxil), 20 MG PO HS Propranolol (Inderal), 10 MG PO BID Tramadol (Ultram), 50 MG PO PRN Scheduled PRN Fluorometholone (Ophth) (Fluorometholone), 1 DROP OPB QID PRN for RN' Nystatin/Triamcinolone (Mycogen || ), 1 DOSE TOP TID PRN for RN Triamcinolone Acet (Triamcinolone Acetonide), 1 APPLN TOP BID PRN for PRN Allergies Coded Allergies: Milk (Verified Allergy, Unknown, ANAPHYLAXIS, 03/03/18) Prochlorperazine (Verified Allergy, Unknown, ANAPHYLAXIS, 03/03/18) "WILL KILL THEM" Physical Exam Vital Signs Date Time Temp Pulse Resp B/P (MAP) Pulse Ox O2 Delivery O2 Flow Rate FiO2 03/03/18 16:46 64 136/83 95 03/03/18 15:27 65 127/59 93 Room Air 03/03/18 13:29 36.7 67 18 124/81 94 Room Air Physical Exam GENERAL: Patient is awake, alert, and in no acute distress. Patient is resting comfortably and showing no signs of anxiety EYES: The conjunctivae are clear. The pupils are round and reactive. EARS, NOSE, MOUTH AND THROAT: The nose is without any evidence of any deformity. Mucous membranes are moist. Tongue is midline NECK: The neck is nontender and supple. RESPIRATORY: Normal respiratory effort is noted. There is no evidence of wheezing rhonchi or rales to auscultation. CARDIOVASCULAR: Regular rate and rhythm noted. There no murmurs rubs or gallops normal S1 normal S2 GASTROINTESTINAL: The abdomen is nondistended and soft. RLQ tenderness to palpation. BACK: No midline tenderness or or step-off noted range of motion in flexion extension as well as rotation no signs of muscle spasm noted. MUSCULOSKELETAL/EXTREMITIES: There is no evidence of gross deformity. Full range of motion is noted in the hips and shoulders. SKIN: No pedal edema appreciated NEUROLOGIC: Patient is awake alert and oriented x3. Medical Decision & Procedures ER Provider Diagnostic Interpretation: Radiology results as stated below per my review and radiologist interpretation: ABDOMEN AND PELVIS CT WITHOUT CONTRAST CT DOSE: 846.71 mGy.cm HISTORY: Acute right lower quadrant abdominal pain RLQ Pain TECHNIQUE: Multiaxial CT images of the abdomen and pelvis were performed without contrast. A dose lowering technique was utilized adhering to the principles of ALARA. COMPARISON STUDY: None. FINDINGS: Linear subsegmental pleural based consolidative opacities and groundglass densities of the lung bases favor areas of atelectasis/scarring. Calcified granuloma of the lateral segment right middle lobe. No pneumatosis or pneumoperitoneum. Imaged inferior cardiac chambers are unremarkable. Hepatic steatosis. Mild gallbladder distention. Spleen, pancreas and adrenal glands are unremarkable. Kidneys, ureters and bladder are within normal limits. Uterus appears surgically absent. No adnexal mass lesions. Aorta and IVC are unremarkable. No pathologically enlarged lymph nodes are identified. No bowel obstruction or focal bowel wall thickening. Terminal ileum and appendix appear unremarkable. There is no ascites or mesenteric inflammatory changes. Postsurgical changes of the anterior abdominal wall. Soft tissues and bony structures appear unremarkable. Facet arthropathy about the lower lumbar spine. IMPRESSION: 1. No acute intra-abdominal or intrapelvic abnormality identified. 2. No bowel obstruction or focal bowel wall thickening. Normal appendix. 3. Hepatic steatosis. Electronically signed by: Nicolas Lucio M.D. 03/03/2018 3:11 PM Dictated Date/Time: 03/03/2018 3:06 PM Laboratory Results 03/03/18 14:20 Red Blood Count 4.79, Mean Corpuscular Volume 97.5, Mean Corpuscular Hemoglobin 32.4, Mean Corpuscular Hemoglobin Concent 33.2, Mean Platelet Volume 10.8, Neutrophils (%) (Auto) 66.7, Lymphocytes (%) (Auto) 20.1, Monocytes (%) (Auto) 9.2, Eosinophils (%) (Auto) 3.3, Basophils (%) (Auto) 0.4, Neutrophils # (Auto) 6.30, Lymphocytes # (Auto) 1.90, Monocytes # (Auto) 0.87, Eosinophils # (Auto) 0.31, Basophils # (Auto) 0.04 03/03/18 14:20 Test 03/03/18 14:20 03/03/18 15:26 White Blood Count 9.45 K/uL (4.8-10.8) Red Blood Count 4.79 M/uL (4.2-5.4) Hemoglobin 15.5 g/dL (12.0-16.0) Hematocrit 46.7 % (37-47) Mean Corpuscular Volume 97.5 fL (80-100) Mean Corpuscular Hemoglobin 32.4 pg (25-34) Mean Corpuscular Hemoglobin Concent 33.2 g/dl (32-36) Platelet Count 335 K/uL (130-400) Mean Platelet Volume 10.8 fL (7.4-10.4) Neutrophils (%) (Auto) 66.7 % Lymphocytes (%) (Auto) 20.1 % Monocytes (%) (Auto) 9.2 % Eosinophils (%) (Auto) 3.3 % Basophils (%) (Auto) 0.4 % Neutrophils # (Auto) 6.30 K/uL (1.4-6.5) Lymphocytes # (Auto) 1.90 K/uL (1.2-3.4) Monocytes # (Auto) 0.87 K/uL (0.11-0.59) Eosinophils # (Auto) 0.31 K/uL (0-0.5) Basophils # (Auto) 0.04 K/uL (0-0.2) RDW Standard Deviation 48.8 fL (36.4-46.3) RDW Coefficient of Variation 13.5 % (11.5-14.5) Immature Granulocyte % (Auto) 0.3 % Immature Granulocyte # (Auto) 0.03 K/uL (0.00-0.02) Anion Gap 5.0 mmol/L (3-11) Est Creatinine Clear Calc Drug Dose 70.4 ml/min Estimated GFR () 93.3 Estimated GFR (Non- 80.5 BUN/Creatinine Ratio 13.2 (10-20) Calcium Level 9.2 mg/dl (8.5-10.1) Total Bilirubin 0.3 mg/dl (0.2-1) Aspartate Amino Transf (AST/SGOT) 62 U/L (15-37) Alanine Aminotransferase (ALT/SGPT) 66 U/L (12-78) Alkaline Phosphatase 154 U/L (45-117) Total Protein 8.2 gm/dl (6.4-8.2) Albumin 3.8 gm/dl (3.4-5.0) Globulin 4.4 gm/dl (2.5-4.0) Albumin/Globulin Ratio 0.9 (0.9-2) Lipase 161 U/L (73-393) Urine Color YELLOW Urine Appearance CLOUDY (CLEAR) Urine pH 5.5 (4.5-7.5) Urine Specific Marshall 1.014 (1.000-1.030) Urine Protein NEG (NEG) Urine Glucose (UA) NEG (NEG) Urine Ketones NEG (NEG) Urine Occult Blood NEG (NEG) Urine Nitrite NEG (NEG) Urine Bilirubin NEG (NEG) Urine Urobilinogen NEG (NEG) Urine Leukocyte Esterase MODERATE (NEG) Urine WBC (Auto) >30 /hpf (0-5) Urine RBC (Auto) 0-4 /hpf (0-4) Urine Hyaline Casts (Auto) 1-5 /lpf (0-5) Urine Epithelial Cells (Auto) >30 /lpf (0-5) Urine Bacteria (Auto) 2+ (NEG) Laboratory results per my review. Medications Administered Medications (Trade) Dose Ordered Sig/Dottie Route Start Time Stop Time Status Last Admin Dose Admin Sodium Chloride 1,000 ml @ 999 mls/hr Q1H1M STAT IV 03/03/18 14:18 03/03/18 15:18 DC 03/03/18 14:26 999 MLS/HR Ondansetron HCl (Zofran Inj) 4 mg NOW STAT IV 03/03/18 14:18 03/03/18 14:19 DC 03/03/18 14:26 4 MG Morphine Sulfate (MoRPHine SULFATE INJ) 4 mg Q15M PRN IV 03/03/18 14:30 03/03/18 17:06 DC 03/03/18 14:27 4 MG Cefdinir (Omnicef Cap) 300 mg ONE STAT PO 03/03/18 15:49 03/03/18 15:51 DC 03/03/18 16:25 300 MG ED Course 1412: The patient was evaluated in room A4B. A complete history and physical examination were performed. 1418: Ordered Zofran Inj 4 mg IV, NSS 1,000 ml @ 999 mls/hr IV 1430: Ordred Morphine Sulfate 4 mg IV. 1550: Ordered Cefdinir 300 mg PO. 1551: Upon reevaluation, the patient is feeling better. I discussed the results and treatment plan with her. She verbalized agreement of the treatment plan. The patient was discharged home. Medical Decision Etiologies such as appendicitis, diverticulitis, PUD, biliary pathology, UTI, pancreatitis, obstruction, mesenteric ischemia, aortic pathology, infections, inflammatory bowel disease, renal colic, as well as others were entertained. Nursing notes reviewed. The patient is a 47-year-old female who presented to the emergency department for right-sided abdominal pain. The patient had reproducible right lower quadrant abdominal pain. She was seen by her primary care physician and sent to the emergency department for the possibility of appendicitis. The patient was treated with IV fluids in the emergency department. I discussed the patient 's laboratory and radiographic studies with her. CT did not show any signs of appendicitis. She was found to have signs of urinary tract infection on urinalysis. She was started on antibiotics in the emergency department. She was reevaluated multiple times. She was encouraged to rest and avoid any strenuous activity. She was also encouraged to call her primary care physician to schedule a follow-up appointment. She was also encouraged to return the emergency department immediately if symptoms change worsen or the need arises. Medication Reconcilliation Current Medication List: was personally reviewed by me Blood Pressure Screening Patient's blood pressure: Normal blood pressure Blood pressure disposition: Did not require urgent referral Impression Primary Impression: RLQ abdominal pain Additional Impression: UTI (urinary tract infection) Scribe Attestation The scribe's documentation has been prepared under my direction and personally reviewed by me in its entirety. I confirm that the note above accurately reflects all work, treatment, procedures, and medical decision making performed by me. Departure Information Dispostion Home / Self-Care Prescriptions Cefdinir (OMNICEF) 250 Mg/5 Ml Rachana 6 ML PO Q12H, #85 ML Prov: Nura Tierney, 03/03/18 Referrals Shiva Sifuentes M.D. (PCP) Forms Call Back Authorization, HOME CARE DOCUMENTATION FORM, IMPORTANT VISIT INFORMATION Patient Instructions [facility] Additional Instructions Continue to use Motrin and Tylenol as directed for pain. Continue all other medications as prescribed. Drink plenty clear liquids. Call your family doctor to schedule a follow-up appointment. Problem Qualifiers Additional Impression: UTI (urinary tract infection) Urinary tract infection type: acute cystitis Hematuria presence: without hematuria Qualified Codes: N30.00 - Acute cystitis without hematuria
[2018-03-03 14:30] LABS: BASO % 0.4 %; BASO ABS # 0.04 K/uL (0-0.2); EOS % 3.3 %; EOS ABS # 0.31 K/uL (0-0.5); HEMATOCRIT 46.7 % (37-47); HEMOGLOBIN 15.5 g/dL (12.0-16.0); IG# 0.03 K/uL (0.00-0.02); LYMPH % 20.1 %; MEAN CELL VOLUME 97.5 fL (80-100); MEAN CORPUSCULAR HEMOGLOBIN 32.4 pg (25-34); MEAN CORPUSCULAR HGB CONC 33.2 g/dl (32-36); MEAN PLATELET VOLUME 10.8 fL (7.4-10.4); MONO % 9.2 %; MONO ABS # 0.87 K/uL (0.11-0.59); NEUT % 66.7 %; PLATELET COUNT 335 K/uL (130-400); RED CELL DISTRIBUTION WIDTH CV 13.5 % (11.5-14.5); RED CELL DISTRIBUTION WIDTH SD 48.8 fL (36.4-46.3); WHITE BLOOD COUNT 9.45 K/uL (4.8-10.8)
[2018-03-03] MEDS ORDERED: MoRPHine SULFATE 4 MG/ML 1 ML CARP\\VIAL IV PRN (14:30)
[2018-03-03 14:52] LABS: ALBUMIN 3.8 gm/dl (3.4-5.0); CALCIUM 9.2 mg/dl (8.5-10.1); CREATININE 0.85 mg/dl (0.60-1.20); POTASSIUM 3.9 mmol/L (3.5-5.1); TOTAL PROTEIN 8.2 gm/dl (6.4-8.2)
--- NOTE | 2018-03-03 15:13 | DIAGNOSTIC IMAGING REPORT ---
ABDOMEN AND PELVIS CT WITHOUT CONTRAST CT DOSE: 846.71 mGy.cm HISTORY: Acute right lower quadrant abdominal pain RLQ Pain TECHNIQUE: Multiaxial CT images of the abdomen and pelvis were performed without contrast. A dose lowering technique was utilized adhering to the principles of ALARA. COMPARISON STUDY: None. FINDINGS: Linear subsegmental pleural based consolidative opacities and groundglass densities of the lung bases favor areas of atelectasis/scarring. Calcified granuloma of the lateral segment right middle lobe. No pneumatosis or pneumoperitoneum. Imaged inferior cardiac chambers are unremarkable. Hepatic steatosis. Mild gallbladder distention. Spleen, pancreas and adrenal glands are unremarkable. Kidneys, ureters and bladder are within normal limits. Uterus appears surgically absent. No adnexal mass lesions. Aorta and IVC are unremarkable. No pathologically enlarged lymph nodes are identified. No bowel obstruction or focal bowel wall thickening. Terminal ileum and appendix appear unremarkable. There is no ascites or mesenteric inflammatory changes. Postsurgical changes of the anterior abdominal wall. Soft tissues and bony structures appear unremarkable. Facet arthropathy about the lower lumbar spine. IMPRESSION: 1. No acute intra-abdominal or intrapelvic abnormality identified. 2. No bowel obstruction or focal bowel wall thickening. Normal appendix. 3. Hepatic steatosis. Electronically signed by: Nicolas Lucio M.D. 03/03/2018 3:11 PM Dictated Date/Time: 03/03/2018 3:06 PM
[2018-03-03] MEDS ORDERED: CEFDINIR 300 MG CAP PO STA (15:49)
[2018-03-03] MEDS ORDERED: CEFD300C2 PO (15:51)
[2018-03-03] MEDS ORDERED: CEFD250S3 PO (16:32)
[2018-03-03 16:46] VITALS: BP 136/83; PULSE 64; O2SAT 95
== END 2018-03-03 16:47 | disposition home or self-care (01) ==
LOC: C.EDB 13:25 → C.EDA 16:47
DX: M54.9 Dorsalgia, unspecified (principal); N39.0 Urinary tract infection, site not specified; F17.200 Nicotine dependence, unspecified, uncomplicated; Z79.899 Other long term (current) drug therapy; Z88.8 Allergy status to other drugs, medicaments and biological substances; Z91.011 Allergy to milk products

== ENCOUNTER 2019-03-09 07:22 | Inpatient (IN) ==
[2019-02-15 12:11] LABS: Basophils # (auto) 0.03 K/uL (0-0.2); Basophils % (auto) 0.4 %; Eosinophils % (auto) 2.9 %; Hematocrit (blood only) 46.8 % (37-47); Hemoglobin 15.6 g/dL (12.0-16.0); Immature Granulocytes # (auto) 0.01 K/uL (0.00-0.02); Immature Granulocytes % (auto) 0.1 %; Lymphocytes # (auto) 2.03 K/uL (1.2-3.4); Lymphocytes % (auto) 29.3 %; Mean Corpuscular Hgb Conc 33.3 g/dL (32-36); Mean Corpuscular Volume 99.2 fL (80-100); Mean Platelet Volume 11.3 fL (7.4-10.4); Monocytes # (auto) 0.56 K/uL (0.11-0.59); Monocytes % (auto) 8.1 %; Neutrophils # (auto) 4.09 K/uL (1.4-6.5); Neutrophils % (auto) 59.2 %; Platelet Count 362 K/uL (130-400); RDW Coefficient of Variation 13.8 % (11.5-14.5); RDW Standard Deviation 49.8 fL (36.4-46.3); Red Blood Count 4.72 M/uL (4.2-5.4); White Blood Count 6.92 K/uL (4.8-10.8)
[2019-02-15 12:45] LABS: BUN Creatinine Ratio 12.1 (10-20); Blood Urea Nitrogen 11 mg/dl (7-18); Calcium 9.7 mg/dl (8.5-10.1); Carbon Dioxide 27 mmol/L (21-32); Chloride 109 mmol/L (98-107); Est GFR (African American) 83.1; Est GFR (Non-African American) 71.7; Glucose 80 mg/dl (70-99); Potassium 4.4 mmol/L (3.5-5.1); Sodium 141 mmol/L (136-145)
--- NOTE | 2019-03-01 07:51 | Anesthesiology Consultation ---
Date of Service March 01, 2019 GETA with PNB and 7.0 ETT for previous shoulder arthroscopy 08/2018 Assessment & Plan (1) Encounter for pre-operative examination: Chart Review Chart Review: Acceptable Risk for Surgery and Patient NOT seen in Pre Admission Testing Consults Requested none History Surgery Operation Date: 03/09/19 11:30 Proposed Procedures p Right Shoulder Arthroscopy(Right) - Vincenzo Yao DO s Arthroscopic Superior Capsular Reconstru(Right) - Vincenzo Yao DO Height/Weight Height: 4 ft 7 in Weight: 72.575 kg Allergies Allergy/AdvReac Type Severity Reaction Status Date / Time milk Allergy Unknown ANAPHYLAXIS Verified 08/04/18 08:11 prochlorperazine Allergy Unknown ANAPHYLAXIS Verified 08/04/18 08:11 bee pollen Allergy Anaphylaxis Verified 08/04/18 08:11 Medications Home Medications Medication Instructions Recorded Confirmed Last Taken paroxetine HCl 20 mg PO QPM 04/13/18 02/16/19 05/24/18 propranolol 20 mg PO BID 04/13/18 02/16/19 08/04/18 07:00 aspirin 81 mg PO QPM 07/13/18 02/16/19 Unknown oxycodone-acetaminophen [Percocet] 1 tab PO Q4 PRN #40 tab 08/04/18 02/16/19 Unknown Past Medical History Medical History Anxiety Benign head tremor Cardiomegaly Depression Dry eyes Eczema Migraine Morbid obesity Occipital neuralgia Rheumatoid arthritis Past Family History Family History Other No known health problems Past Surgical History Surgical History H/O ventral hernia repair MARCH 2016 History of section X4 History of foot surgery LEFT FOOT History of tooth extraction History of total abdominal hysterectomy and bilateral salpingo-oophorectomy Hx of shoulder surgery Social History Smoking Status: Current every day smoker tobacco type: cigarettes Smoking cigarettes per day: 4 Do You Dip or Chew Tobacco: No Hx Alcohol Use: No Hx Substance Use: No substance use type: does not use Testing Laboratory Results 02/15/19 10:39 02/15/19 10:39 Electrocardiogram Date: 07/29/18 Findings: + SB @
[~2019-03-09 07:22] MED LIST changes: +BUPIVACAINE 0.25% 30 ML VIAL ONE; +CEFAZOLIN 1000MG 1,000 MG/7.5 ML SYR IV SCH; -CLR10 PO; -CRIS2OIN TOP; -DICL50TA3 PO; +EPINEPHrine INJ 1 MG/ML AMP ONE; +EpINEphrine HCL INJ 1 MG/ML 1ML SYRINGE ONE; -FLUO0.1S12 OPB; -IBUP-1050 PO; +LACTATED RINGER'S 1,000 ML IV SCH; -NYSTCRE11 TOP; -PARO1TAB27 PO; -PROP10TA7 PO; -TRAM-10 PO; -TRMO115 TOP
[2019-03-09] MEDS ORDERED: BUPIVACAINE 0.5 % 5 MG/1 ML MPF 30ML VIAL ONE (07:49)
--- NOTE | 2019-03-09 07:49 | History & Physical Bridge Note ---
Date of Service March 09, 2019 History & Physical Bridge Note I have examined the patient, reviewed the History & Physical and in the interval since the performance of the History & Physical I have noted the following changes of clinical significance: no changes noted
[2019-03-09] MEDS ORDERED: MEPERIDINE HCL 25 MG/ML CARP IV PRN (07:56)
[2019-03-09] MEDS ORDERED: HYDROmorphone INJ 1 MG/ML SYRINGE IV PRN (07:56)
[2019-03-09] MEDS ORDERED: LABETALOL HCL IV 5 MG/ML 20ML IV PRN (07:56)
[2019-03-09] MEDS ORDERED: ATROPINE SULFATE 0.1 MG/ML 10ML SYR IV PRN (07:56)
[2019-03-09] MEDS ORDERED: ePHEDrine sulfate 50 MG/ML AMP IV PRN (07:56)
[2019-03-09] MEDS ORDERED: fentaNYL citrate 100 MCG/2 ML VIAL IV PRN (07:56)
[2019-03-09] MEDS ORDERED: ONDANSETRON INJ 2 MG/ML 2 ML VIAL IV PRN ×2 (07:56→17:02)
[2019-03-09] MEDS ORDERED: PHENYLEPHRINE 100MCG/ML 5ML SYR IV PRN (07:56)
[2019-03-09] MEDS ORDERED: PROPOFOL IV EMULSION 10 MG/ML 20 ML VIAL IV ONE ×2 (08:09→11:14)
[2019-03-09] MEDS ORDERED: DEXAMETHASONE SOD INJ 4 MG/ML VIAL ONE (08:09)
[2019-03-09] MEDS ORDERED: MIDAZOLAM HCL 1 MG/ML 2ML VIAL ONE (08:09)
[2019-03-09] MEDS ORDERED: ONDANSETRON INJ 2 MG/ML 2 ML VIAL ONE ×2 (08:09→12:46)
[2019-03-09] MEDS ORDERED: LIDOCAINE HCL 2% 2 ML VIAL/AMP(20MG/ML) INFIL ONE (08:09)
[2019-03-09] MEDS ORDERED: fentaNYL citrate 100 MCG/2 ML VIAL ONE (08:10)
[2019-03-09] MEDS ORDERED: ePHEDrine sulfate 50 MG/ML SYR ONE (11:14)
[2019-03-09] MEDS ORDERED: GLYCOPYRROLATE 0.2 MG/ML VIAL ONE (11:14)
[2019-03-09] MEDS ORDERED: OXYCODONE/ACETAMINOPHEN 5mg/325mg TAB PO PRN ×2 (12:53)
--- NOTE | 2019-03-09 12:53 | Operative Report ---
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 She is fallen several times since the surgery. Unfortunately she continued to have right shoulder pain. MRI showed a rerupture of the rotator cuff. After failing conservative treatment, she elected to proceed with a superior capsular reconstruction of the right shoulder. Description of Procedure On March 09, 2019 she arrived at [facility] for the above procedure. She was seen in the preoperative holding area and the operative extremity was identified and signed. She was given a preoperative antibiotic and a right interscalene nerve block. She was taken back to the operating room and laid on the table in the supine position. She was put under general anesthesia. She was put into the beachchair position. The right shoulder was prepped and draped in sterile fashion. A timeout was done. The patient and the operative extremity was properly identified. A scope was introduced into a posterior portal. Diagnostic arthroscopy showed no cartilage damage to the humeral head of the glenoid. There was a complete tear of the entire supraspinatus. It was retracted back to the level of the glenoid. The infraspinatus and subscapularis were intact. 2 lateral portals were made. Latonia cannulas were placed in each L lateral portals. A shaver and ablator and a biter were all used to try to remove the previous sutures. The greater tuberosity and the superior rim of the glenoid were then prepared. It was taken down the bleeding bone. A 3.9 mm knotless corkscrew anchor was placed in the posterior glenoid and a 5 5 corkscrew anchor was placed in the anterior glenoid at the base of the coracoid. Also having difficulty with bone quality in this place which is why used a 5.5 mm anchor. A 5.5 mm swivel lock suture anchor was placed in the anterior medial anchor on the greater tuberosity. A 4.75 mm bio composite swivel lock suture anchor was placed in the posterior medial greater tuberosity. Distance between the anchors was then measured. An arthro-Flex graft was then prepared. The graft was then passed through a passport cannula and laid down nicely. All sutures were tied. I was happy with the overall tension. 2 margin convergent sutures were placed anteriorly and one was placed posteriorly. The arm was brought through full range of motion and was happy with the overall tension of the repair. Arthroscopic instruments were then removed from the shoulder. Portal sites were closed with 3-0 nylon. She was then placed in a soft dressing and a regular arm sling. She was then extubated and transferred to a [facility]. She was taken to the postanesthesia care unit in stable condition. She tolerated the procedure well. I attest to the content of the Intraoperative Record and any orders documented therein. Any exceptions are noted below.
--- NOTE | 2019-03-09 13:46 | Anesthesiology Progress Note ---
Date of Service March 09, 2019 Anesthesia Post Procedure Vital Signs Vital Signs: Temp Pulse Pulse Resp BP BP Pulse Ox 03/09/19 13:35 62 21 113/75 96 03/09/19 13:30 63 23 107/79 86 L 03/09/19 13:26 60 20 137/71 95 03/09/19 13:20 62 28 H 125/72 93 03/09/19 13:16 72 19 119/88 96 03/09/19 13:10 66 17 128/92 03/09/19 13:05 65 23 142/93 H 95 03/09/19 13:00 65 16 139/111 H 97 03/09/19 12:55 60 18 151/98 H 99 03/09/19 12:54 36.1 C L 70 16 133/91 97 03/09/19 12:50 68 27 H 133/91 89 L 03/09/19 12:49 79 11 L 03/09/19 09:23 46 L 130/78 98 03/09/19 09:20 53 L 126/88 97 03/09/19 09:18 48 L 114/70 97 03/09/19 09:15 49 L 130/84 96 03/09/19 09:12 48 L 132/67 97 03/09/19 09:11 55 L 95 03/09/19 09:09 49 L 133/85 03/09/19 09:07 51 L 116/66 97 03/09/19 09:00 49 L 03/09/19 08:50 49 L 03/09/19 08:40 52 L 03/09/19 08:30 48 L 03/09/19 08:20 52 L 03/09/19 08:14 57 L 12 03/09/19 07:37 55 L 18 103/43 L 94 Transfer of Care Handoff Completed per policy Notes Mental Status: alert / awake / arousable and participated in evaluation Patient Amnestic to Procedure: Yes Nausea / Vomiting: adequately controlled Pain: adequately controlled Airway Patency, RR, SpO2: stable & adequate BP & HR: stable & adequate Hydration State: stable & adequate Anesthetic Complications: no major complications apparent and Pt Satisfied with anesthetic care Notes: nerve block working well
--- NOTE | 2019-03-09 15:40 | History & Physical Report ---
Date of Service March 09, 2019 Assessment & Plan (1) History of repair of right rotator cuff: We will keep her under observation overnight. I will see her tomorrow morning and plan to discharge her to home on oral pain medications. Present on Admission?: Yes History of Present Illness Chief Complaint: Postoperative right shoulder arthroscopy Primary Care Provider: NO PCP Eugenia is a 48-year-old female who presented my office with a large chronic right rotator cuff tear. She was having severe pain. I attempted an arthroscopic rotator cuff repair 8 months ago but unfortunately she had multiple falls and tore the cuff repair. She came to [facility] today and underwent a superior capsular reconstruction. She does have multiple psychiatric issues. She has a friend is going to stay with her but the friend will be by until tomorrow. There is concerns of her being able to take care of herself at home so she is being admitted for postoperative observation. Allergies Allergy/AdvReac Type Severity Reaction Status Date / Time milk Allergy Unknown ANAPHYLAXIS Verified 03/09/19 07:34 prochlorperazine Allergy Unknown ANAPHYLAXIS Verified 03/09/19 07:34 bee pollen Allergy Anaphylaxis Verified 03/09/19 07:34 Home Medications Home Medications Medication Instructions Recorded Confirmed Type paroxetine HCl 20 mg PO QPM 04/13/18 02/16/19 History propranolol 20 mg PO BID 04/13/18 02/16/19 History aspirin 81 mg PO QPM 07/13/18 02/16/19 History oxycodone-acetaminophen [Percocet] 1 tab PO Q4 PRN #40 tab 08/04/18 02/16/19 Rx ketorolac 10 mg PO Q8H 5 Days #15 tab 03/09/19 Rx Past Med/Surg History Medical History Anxiety Benign head tremor Cardiomegaly Depression Dry eyes Eczema Migraine Morbid obesity Occipital neuralgia Rheumatoid arthritis Surgical History H/O ventral hernia repair MARCH 2016 History of section X4 History of foot surgery LEFT FOOT History of tooth extraction History of total abdominal hysterectomy and bilateral salpingo-oophorectomy Hx of shoulder surgery Family History Other No known health problems Social History Preferred Language: Latvian Communication Ability: Effective Statistics Tutor Required: No Beliefs That Will Affect Care: None Current Living Situation: Personal Care Facility Current Living Situation Comment: lives at [facility] Other Information That Helps Us Care for You: No Feels Safe at Home: Yes Safety Concerns: Feels Safe At This Time Smoking Status: Current every day smoker Tobacco Type: cigarettes ; Cigarettes Per Day: 4 ; Do You Dip or Chew Tobacco: No ; Second Hand Exposure: Yes ; To bacco Cessation Education Requested by Patient: No Hx Alcohol Use: No Hx Substance Use: No Physical Exam Musculoskeletal: She is wearing a right arm sling as instructed. The dressing is clean and dry. Results & Data Vital Signs (Past 12 Hours) Vital Signs Temp Pulse Pulse Resp BP BP Pulse Ox 03/09/19 14:03 36.4 C L 58 L 18 118/75 97 03/09/19 13:45 60 20 107/73 95 03/09/19 13:40 60 16 114/79 96 03/09/19 13:35 62 21 113/75 96 03/09/19 13:30 63 23 107/79 86 L 03/09/19 13:26 60 20 137/71 95 03/09/19 13:20 62 28 H 125/72 93 03/09/19 13:16 72 19 119/88 96 03/09/19 13:10 66 17 128/92 03/09/19 13:05 65 23 142/93 H 95 03/09/19 13:00 65 16 139/111 H 97 03/09/19 12:55 60 18 151/98 H 99 03/09/19 12:54 36.1 C L 70 16 133/91 97 03/09/19 12:50 68 27 H 133/91 89 L 03/09/19 12:49 79 11 L 03/09/19 09:23 46 L 130/78 98 03/09/19 09:20 53 L 126/88 97 03/09/19 09:18 48 L 114/70 97 03/09/19 09:15 49 L 130/84 96 03/09/19 09:12 48 L 132/67 97 03/09/19 09:11 55 L 95 03/09/19 09:09 49 L 133/85 03/09/19 09:07 51 L 116/66 97 03/09/19 09:00 49 L 03/09/19 08:50 49 L 03/09/19 08:40 52 L 03/09/19 08:30 48 L 03/09/19 08:20 52 L 03/09/19 08:14 57 L 12 03/09/19 07:37 55 L 18 103/43 L 94
--- NOTE | 2019-03-09 16:14 | Anesthesiology Progress Note ---
Date of Service March 09, 2019 Subjective Ms. Parks had an uncomplicated intra and postoperative course today after right shoulder surgery. During the discharge process though, it was learned that Ms Parks no longer has anyone living at home with her, as she did for her past surgery. She lives independently, but is associated with a intermediate. Per the caregiver from the home, no one is available to stay with Ms Parks tonkhadar. In addition, the caregiver related that Ms. Parks falls frequently, often requiring assistance. Unfortunately, Ms Parks has an interscalene nerve block in place, incapacitating her entire right arm, and if she falls tonight she will be unable to safely get off the floor to call for help. Discharge paperwork from [facility] clearly states that someone must be available for the first 24 hours after discharge and when I showed this to the caregiver she said that she could not sign the discharge paperwork for the patient. Because we lack a safe or appropriate discharge plan for the patient, I spoke with Dr. Yao who has agreed to admit the patient for overnight observation at the hospital. Ms Parks has a friend coming to stay with her tomorrow who will be able to ensure her safety after this time. Physical Exam Vital Signs: Last Vital Signs Temp 36.4 C L 03/09/19 14:03 Pulse 58 L 03/09/19 14:03 Resp 18 03/09/19 14:03 BP 118/75 03/09/19 14:03 Pulse Ox 97 03/09/19 14:03 Results & Data Medications Administered Cefazolin Sodium (Ancef 1000mg) 1,000 mg in 7.5 mls @ 2.5 mls/min IV PREOP SHELDON; Protocol Stop: 03/09/19 18:00 Last Admin: 03/09/19 09:27 Dose: 2.5 mls/min Documented by: [id number] Lactated Ringer's (Lr) 1,000 mls @ 15 mls/hr IV .Q24H SHELDON Stop: 03/09/19 18:00 Last Admin: 03/09/19 08:06 Dose: 15 mls/hr Documented by: [id number]
[2019-03-09] MEDS ORDERED: HYDROmorphone INJ 0.5 MG/0.5 ML SYR IV PRN (17:02)
[2019-03-09] MEDS ORDERED: NALOXONE HCL 0.4 MG/1 ML VIAL/CARP IV PRN (17:02)
[2019-03-09] MEDS ORDERED: METOCLOPRAMIDE HCL INJ 5 MG/ML 2 ML VIAL IV PRN (17:02)
[2019-03-09] MEDS: SODIUM CHLORIDE 0.9% 1000ML 1,000 ML IV SCH (19:31)
[2019-03-09] MEDS: KETOROLAC TROMETHAMINE 15 MG/ML VIAL IV SCH ×2 (19:36→23:42)
[2019-03-09] MEDS: ASPIRIN 81 MG ECTAB PO SCH (21:23)
[2019-03-09] MEDS: PARoxetine HCl 20 MG TAB PO SCH (21:23)
[2019-03-09] MEDS: PROPRANOLOL HCL 10 MG TAB PO SCH (21:25)
[2019-03-10] MEDS: SODIUM CHLORIDE 0.9% 1000ML 1,000 ML IV SCH (04:10)
[2019-03-10] MEDS: KETOROLAC TROMETHAMINE 15 MG/ML VIAL IV SCH ×2 (05:55→12:10)
[2019-03-10] MEDS: MULTIVITAMIN TAB PO SCH (08:50)
[2019-03-10] MEDS: PROPRANOLOL HCL 10 MG TAB PO SCH ×2 (08:52→21:14)
--- NOTE | 2019-03-10 15:12 | Orthopedic Progress Note ---
Date of Service March 10, 2019 Assessment & Plan (1) History of repair of right rotator cuff: Overall she is doing fairly well. There is still some concerns about her being able to take care of herself at home. Therapy has recommended acute rehab facility. She is currently working with case management. She can be discharged to a rehab facility when medically stable. She will follow-up with orthopedics as scheduled in 2 weeks. Present on Admission?: Yes Subjective Eugenia was seen and examined at bedside this morning. Overall she is doing fairly well. She is not having much pain in the right shoulder. She was able to participate well with physical therapy and Occupational Therapy today. She is in good spirits. She is looking to go to rehab soon. Physical Exam Musculoskeletal: Physical examination of the right shoulder, the dressing is clean and dry. She is active motion of her fingers. She does have some swell ing. She still little bit of numbness around the thumb and index finger. Results & Data Vital Signs (Past 12 Hours) Vital Signs Temp Pulse Pulse Resp BP BP Pulse Ox 03/10/19 11:26 36.4 C L 50 L 18 112/70 92 03/10/19 10:33 92 03/10/19 09:50 03/10/19 08:49 71 99/59 L 93 03/10/19 08:00 36.4 C L 68 18 108/66 91 03/10/19 03:37 93 03/10/19 03:35 36.7 C 68 14 95/57 L 88 L Pulse Ox Pulse Ox Pulse Ox 03/10/19 11:26 03/10/19 10:33 03/10/19 09:50 92 92 93 03/10/19 08:49 03/10/19 08:00 03/10/19 03:37 03/10/19 03:35 PG Care Time/CCT Total # of Minutes Spent Total Time Spent with Patient: Total time spent is greater than 50% in coordination of care (as documented) at patient's floor/unit and/or counseling patient:
[2019-03-10] MEDS: OXYCODONE/ACETAMINOPHEN 5mg/325mg TAB PO PRN (18:14)
[2019-03-10] MEDS: PARoxetine HCl 20 MG TAB PO SCH (21:14)
[2019-03-10] MEDS: ASPIRIN 81 MG ECTAB PO SCH (21:14)
[2019-03-11] MEDS: OXYCODONE/ACETAMINOPHEN 5mg/325mg TAB PO PRN ×4 (00:50→21:07)
--- NOTE | 2019-03-11 07:14 | Orthopedic Progress Note ---
Date of Service March 11, 2019 Assessment & Plan (1) History of repair of right rotator cuff: She is doing fairly well with her right shoulder. She will be seen again by physical therapy today. She is orthopedically stable for discharge when a bed is available. She will follow-up with orthopedics as scheduled in 2 weeks. Present on Admission?: Yes Subjective Eugenia was seen and examined at bedside this morning. Overall she is doing fairly well. She is not having too much pain in the right shoulder. She was able to get some sleep last night. She has no complaints. Physical Exam Musculoskeletal: On physical examination of the left shoulder, the dressing is clean and dry. She is wearing a sling as instructed. She is neurovascular intact. Results & Data Vital Signs (Past 12 Hours) Vital Signs Temp Pulse Pulse Resp BP BP Pulse Ox 03/11/19 07:10 36.4 C L 55 L 18 119/76 92 03/10/19 22:52 36.7 C 59 L 16 104/67 91 03/10/19 21:12 55 L 18 106/70 93 PG Care Time/CCT Total # of Minutes Spent Total Time Spent with Patient: Total time spent is greater than 50% in coordination of care (as documented) at patient's floor/unit and/or counseling patient:
[2019-03-11] MEDS: PROPRANOLOL HCL 10 MG TAB PO SCH ×2 (08:49→21:08)
[2019-03-11] MEDS: MULTIVITAMIN TAB PO SCH (08:49)
[2019-03-11] MEDS: ASPIRIN 81 MG ECTAB PO SCH (21:07)
[2019-03-11] MEDS: PARoxetine HCl 20 MG TAB PO SCH (21:08)
--- NOTE | 2019-03-12 08:33 | Progress Note ---
DATE: 03/12/2019 SUBJECTIVE: A 48-year-old female postop day 3 from right shoulder surgery. She is doing pretty well. Pain is reasonably well controlled. She is really just waiting for placement. No new complaints. OBJECTIVE: VITAL SIGNS: Temperature 36.5. Vital signs stable. GENERAL: Shows a pleasant, middle-aged female. She is sitting up in her bed and looks quite comfortable. EXTREMITIES: Sling is in place. Dressing is clean, dry and intact. No significant drainage. She is neurologically intact. ASSESSMENT: A 48-year-old female postoperative day 3 from a right shoulder surgery, doing pretty well. Pain is controlled. Just waiting for placement. PLAN: We will continue pain control with oral pain meds. She will continue gentle therapy. Plan is to discharge to a [facility] facility tomorrow.
[2019-03-12] MEDS: PROPRANOLOL HCL 10 MG TAB PO SCH ×2 (10:45→20:57)
[2019-03-12] MEDS: MULTIVITAMIN TAB PO SCH (10:45)
[2019-03-12] MEDS: PARoxetine HCl 20 MG TAB PO SCH (20:57)
[2019-03-12] MEDS: ASPIRIN 81 MG ECTAB PO SCH (20:57)
[2019-03-12] MEDS: OXYCODONE/ACETAMINOPHEN 5mg/325mg TAB PO PRN (21:06)
[2019-03-13] MEDS: PROPRANOLOL HCL 10 MG TAB PO SCH (08:18)
[2019-03-13] MEDS: MULTIVITAMIN TAB PO SCH (08:18)
--- NOTE | 2019-03-16 07:56 | Discharge Summary ---
Date of Service March 16, 2019 Admission HPI Per Admitting Provider Eugenia is a 48-year-old female who presented my office with a large chronic right rotator cuff tear. She was having severe pain. I attempted an arthroscopic rotator cuff repair 8 months ago but unfortunately she had multiple falls and tore the cuff repair. She came to [facility] today and underwent a superior capsular reconstruction. She does have multiple psychiatric issues. She has a friend is going to stay with her but the friend will be by until tomorrow. There is concerns of her being able to take care of herself at home so she is being admitted for postoperative observation. Principal Diagnosis Right shoulder superior capsular reconstruction Discharge Data Allergies Allergy/AdvReac Type Severity Reaction Status Date / Time milk Allergy Unknown ANAPHYLAXIS Verified 03/09/19 07:34 prochlorperazine Allergy Unknown ANAPHYLAXIS Verified 03/09/19 07:34 bee pollen Allergy Anaphylaxis Verified 03/09/19 07:34 Consultations 03/09/19 17:02 Consult Case Management - Discharge Planning Routine Procedures Performed Operation Date: 03/09/19 09:50 Actual Procedures p Right Shoulder Arthroscopy(Right) - Vincenzo Yao DO s Superior Capsular Reconstruction(Right) - Vincenzo Yao DO Ordered Studies 03/09/19 07:56 US - OR guided needle placemen Routine Hospital Course (1) History of repair of right rotator cuff: On March 09, 2019 Eugenia arrived at [facility] and underwent a superior capsular reconstruction of her right shoulder. There was concerns about her being able to take care of herself at home. She does have multiple psychiatric issues and she is a patient of [employer]. She was then admitted to the hospital. Her hospital course was relatively uneventful. She was seen by physical therapy and able to do hand wrist and elbow exercises. She did not do any pendulum exercises. Her pain was well controlled throughout her stay. On postop day #4 the case management was able to find placement at a nursing facility. She was then discharged. She will follow-up with orthopedics in 2 weeks. Total Time Total Time Spent Total Time Spent (In Minutes): 20 Discharge Plan Discharge Items Patient Disposition: Transfer Care Home Fac Reason For Visit: RT SHOULDER ARTHROSCOPY Discharge Diagnosis: Right shoulder superior capsular reconstruction Discharge Goals: Decrease discomfort and Improve function Activity: Per 'Additional Instructions' section Non-emergency contact: Surgeon Call non-emergency contact if: your wound has increased redness and your wound has increased drainage Follow-up/Referrals: PCP,NO [Primary Care Provider] - Diet: Regular Addtl Provider Instructions: Shoulder Rotator Cuff Repair Discharge Instructions Activity and Therapy Recommendations: 1. Wear your sling for 6 weeks. The duration will be noted on your physical therapy paperwork given after the surgery. You may remove your sling to shower and to dress, but otherwise, you should be in your sling at all times, including while sleeping 2. The rotator cuff repair is not fragile and you can use your hand while in the sling 3. Physical Therapy should not start until you are out of your sling in 6 weeks Therapy should be about twice a week and last about 16 weeks. I dont want therapy any more than twice a week for 16 weeks but we can discuss going less (once a week) if co-pays are high. 4. The therapy protocol is structured around the biology of the tendon healing to the bone. Doing twice as many exercises will not get you better twice as fast. The motion will come. The goal is to get the tendon to heal to the bone and not get your motion back as fast as possible. Please be patient. 5. You can sleep in any position after the surgery as long as you are in your sling. Most people feel comfortable sleeping in a recliner, but you can sleep in a bed or on a couch if it is more comfortable. Medications: 1. Narcotic You will likely be sent home from the hospital with a prescription for the narcotic pain medication. Take it as needed. Side effects most commonly include nausea and constipation 2. Toradol You will likely be sent home with this anti-inflammatory. It is a post-surgical ibuprofen (NSAID). Take it for 5 days as prescribed. If you have any side effects, such as stomach upset (not nausea), then stop immediately Dressing Care: There will be a plastic dressing on your shoulder. Leave the dressing on for 48 hours. After 48 hours you may remove the dressing and leave the stitches open to air or cover them with band-aids if they are getting caught on your clothing. Showering: You may shower 48 hours after the surgery. Let the soapy shower water run over the stitches and pat them dry. Do not scrub or soak the incisions. Things To Watch For: 1. Drainage from the incision site that occurs more than one week after your surgery. 2. Increased redness at the incision site. 3. Fever above 102 degrees Fahrenheit. 4. Unusual chest pain or shortness of breath. 5. Call [facility] at with any of the above problems Follow-Up Visit: Follow-up with Dr. Yao 2 weeks after your day of surgery. An appointment was probably scheduled when you signed-up for surgery in the office. If you have any questions call Prescriptions: New oxycodone-acetaminophen [Percocet] 5-325 mg tablet 1 tab PO Q4 PRN (Reason: pain) Qty: 40 RF: 0 Continued propranolol 10 mg tablet 20 mg PO BID RF: 0 paroxetine HCl 20 mg tablet 20 mg PO QPM RF: 0 aspirin 81 mg Tablet,Delayed Release (Dr/Ec) 81 mg PO QPM RF: 0 Stand-Alone Forms: Anesthesia/Sedation, Adult, [facility] [address] [facility]/Other Patient Handouts: Surgery Prevent DVT After Discharge Orders: Discharge Order (Routine); Ordered 03/10/19 Ordered By: Vincenzo Yao Skilled Items Patient informed of condition?: Yes DNR: No Discharge Level of Care: Acute rehab Communicable Disease: No Discharge Prognosis: Improving Admission Data Admit Date/Time: 03/09/19 15:48 Attending Provider: Vincenzo Yao Admit Provider: Vincenzo Yao Primary Care Provider: PCP,NO Service: Surgical Services Other Interventions: Discharge Summary Assessment (RN) Last Done: 03/13/19 11:15 DC Date/Time DO NOT enter until pt leaves facility: 03/13/19 12:37
== END 2019-03-13 12:37 | DRG 501 ==
LOC: SURCTR 07:22 → 3N 15:48
DX: Z68.41 Body mass index [BMI] 40.0-44.9, adult; F17.210 Nicotine dependence, cigarettes, uncomplicated; Z91.030 Bee allergy status; Z79.899 Other long term (current) drug therapy; E66.01 Morbid (severe) obesity due to excess calories; Z91.011 Allergy to milk products; Z98.890 Other specified postprocedural states; F32.9 Major depressive disorder, single episode, unspecified; W19.XXXA Unspecified fall, initial encounter; Z88.8 Allergy status to other drugs, medicaments and biological substances; G43.909 Migraine, unspecified, not intractable, without status migrainosus; Z79.82 Long term (current) use of aspirin; F41.9 Anxiety disorder, unspecified; S46.011A Strain of muscle(s) and tendon(s) of the rotator cuff of right shoulder, initial encounter

== ENCOUNTER 2020-07-19 07:27 | Observation (INO) ==
--- NOTE | 2020-06-10 12:33 | PAT Medication Instructions ---
Medication Instructions Date of Service June 10, 2020 Home Medications Medication Instructions Recorded rizatriptan 10 mg disintegrating 10 mg PO .COMPLEX 30 Days #9 tab 07/12/19 tablet diclofenac sodium 1 % topical gel 4 gm TOP QID PRN #100 gm 01/16/20 cyclobenzaprine 5 mg tablet 5 mg PO Q12H #60 tab 01/23/20 propranolol 10 mg tablet 10 mg PO BID 30 Days #60 tab 02/09/20 colloidal oatmeal 1 % topical cream See Rx Instructions TOP BID #226 gm 02/14/20 meloxicam 7.5 mg tablet 7.5 mg PO DAILY PRN #30 tab 05/23/20 aspirin 81 mg PO QPM rizatriptan 10 mg disintegrating tablet 10 mg PO .COMPLEX diclofenac sodium 1 % topical gel 4 gm TOP QID PRN cyclobenzaprine 5 mg tablet 5 mg PO Q12H propranolol 10 mg tablet 10 mg PO BID colloidal oatmeal 1 % topical cream See Rx Instructions TOP BID meloxicam 7.5 mg tablet 7.5 mg PO DAILY PRN paroxetine HCl 10 mg tablet 10 mg PO PM hydroxyzine pamoate 25 mg PO HS loratadine 10 mg PO PM ASK your surgeon for instructions meloxicam 7.5 mg tablet 7.5 mg PO DAILY PRN ASK your prescriber and surgeon aspirin 81 mg PO QPM STOP taking 24 hours before surgery diclofenac sodium 1 % topical gel 4 gm TOP QID PRN colloidal oatmeal 1 % topical cream See Rx Instructions TOP BID Take morning of surgery With a small sip of water, OTHERWISE NOTHING TO EAT OR DRINK AFTER MIDNIGHT: rizatriptan 10 mg disintegrating tablet 10 mg PO (if needed) propranolol 10 mg tablet 10 mg PO BID Take evening before surgery rizatriptan 10 mg disintegrating tablet 10 mg PO (if needed) cyclobenzaprine 5 mg tablet 5 mg PO Q12H propranolol 10 mg tablet 10 mg PO BID paroxetine HCl 10 mg tablet 10 mg PO PM hydroxyzine pamoate 25 mg PO HS loratadine 10 mg PO PM Other Notes If you have any questions please call us at [phone] or [phone] or [phone] or [phone]
--- NOTE | 2020-06-14 09:34 | Anesthesiology Consultation ---
Date of Service June 14, 2020 Assessment & Plan (1) Encounter for pre-operative examination: COVID Status: As of 06/14 assessment, patient denies travel to endemic area, known exposure/sick contacts, or symptoms of COVID19. Patient instructed that they and their household members must follow strict social distancing guidelines, wear a mask in public and avoid travel/events/gatherings for 14 days prior to surgery. Preoperative COVID19 testing to be completed prior to surgery per surgeon's arrangements. Patient made aware to self-isolate as much as possible between COVID testing and surgery. Chart Review Chart Review: Acceptable Risk for Surgery (pending surgeon-ordered PCP clearance) and Patient seen in Pre Admission Testing Teaching & Discussion Instructed NPO after midnight before surgery, except medications with 15 cc of water. Medication instructions provided according to the PAT guidelines. History Surgery Operation Date: 07/19/20 10:40 Proposed Procedures p Left Ankle Arthroscopy SYnovectomy - Carmine Davis DO s Open Brostrom Procedure with Arthrex Internal Brace, Excision Avulsion Fracture Lateral Malleolus - Carmine Davis DO Height/Weight Height: 4 ft 7 in Weight: 83.2 kg Allergies Allergy/AdvReac Type Severity Reaction Status Date / Time milk Allergy Unknown ANAPHYLAXIS Verified 06/06/20 09:47 prochlorperazine Allergy Unknown ANAPHYLAXIS Verified 06/06/20 09:47 bee pollen Allergy Anaphylaxis Verified 06/06/20 09:47 Medications Home Medications Medication Instructions Recorded Confirmed Last Taken aspirin 81 mg PO QPM 07/13/18 06/06/20 03/02/19 rizatriptan 10 mg disintegrating 10 mg PO .COMPLEX 30 Days #9 tab 07/12/19 06/06/20 Unknown tablet diclofenac sodium 1 % topical gel 4 gm TOP QID PRN #100 gm 01/16/20 06/06/20 Unknown cyclobenzaprine 5 mg tablet 5 mg PO Q12H #60 tab 01/23/20 06/06/20 Unknown propranolol 10 mg tablet 10 mg PO BID 30 Days #60 tab 02/09/20 06/06/20 Unknown colloidal oatmeal 1 % topical cream See Rx Instructions TOP BID #226 gm 02/14/20 06/06/20 Unknown meloxicam 7.5 mg tablet 7.5 mg PO DAILY PRN #30 tab 05/23/20 06/06/20 Unknown paroxetine HCl 10 mg tablet 10 mg PO PM 05/23/20 06/06/20 Unknown hydroxyzine pamoate 25 mg PO HS 06/06/20 06/06/20 Unknown loratadine 10 mg PO PM 06/06/20 06/06/20 Unknown Past Medical History Medical History Anxiety Benign essential tremor Of head Cardiomegaly doesn't follow cardio Degenerative disc disease Depression Eczema Hx of blood clots one clot to right elbow post surgical> 3 yrs ago> Aspirin Occipital neuralgia Osteoarthritis Rheumatoid arthritis Exercise / Class Metabolic Activity II 4-5 Yardwork/Stairs/Walk up hill (Denies CP or SOB with 1 FOS) Past Family History Family History Other No known health problems Denies family history of Ovarian cancer Prostate cancer Breast cancer Lung cancer Colorectal cancer Past Surgical History Surgical History H/O ventral hernia repair MARCH 2016 History of section X4 History of foot surgery LEFT FOOT History of repair of right rotator cuff x2 History of tooth extraction History of total abdominal hysterectomy and bilateral salpingo-oophorectomy Past Anesthesia History No Hx of Anesthesia Complications and No Family Hx of Anesthesia Complications (unsure, pt adopted) History of PONV No Hx of PONV and No Hx of Motion Sickness Social History Smoking Status: Current every day smoker tobacco type: cigarettes Smoking cigarettes per day: 2-3 per day, attempting to quit before surgery Do You Dip or Chew Tobacco: No Hx Alcohol Use: No Hx Substance Use: No substance use type: does not use Review of Systems Pt denies any recent chest pain, shortness of breath, palpitations, cough, fever, URI, or uncontrolled acid reflux. Physical Exam Vital Signs BP: 97/64 (pt reports this is baseline, asymptomatic) P: 67bpm SPO2: 93% RA T:98.1 F R: 16 ENMT Mouth: + chipped teeth; no dental restorations and no loose teeth Thyromental Distance: < 3.5 Finger Breadths (3) Mallampati Class: III Neck + short neck; neck extension not limited Respiratory normal respiratory effort, lungs clear to auscultation Cardiovascular RRR, no murmur, no edema Testing Laboratory Results 06/14/20 09:46 06/14/20 09:16 Urine Color Yellow 06/14/20 09:46 Urine Appearance Cloudy (Clear) A 06/14/20 09:46 Urine pH 6.0 (4.5-7.5) 06/14/20 09:46 Ur Specific [place] 1.016 (1.000-1.030) 06/14/20 09:46 Urine Protein Negative (Negative) 06/14/20 09:46 Urine Glucose (UA) Negative (Negative) 06/14/20 09:46 Urine Ketones Negative (Negative) 06/14/20 09:46 Urine Nitrite Negative (Negative) 06/14/20 09:46 Ur Leukocyte Esterase 2+ (Negative) H 06/14/20 09:46 Urine WBC (Auto) 1-5 /hpf (0-5) 06/14/20 09:46 Urine RBC (Auto) 0-4 /hpf (0-4) 06/14/20 09:46 U Hyaline Cast (Auto) 1-5 /lpf (0-5) 06/14/20 09:46 U Epithel Cells (Auto) >30 /lpf (0-5) H 06/14/20 09:46 Urine Bacteria (Auto) 2+ (Negative) H 06/14/20 09:46 06/14/20 09:46 Urine Culture - Final Urine,Clean Catch More than three types of organisms present, all high counts mixed probable skin jerzy - No further identifications or sensitivities to follow. Surgeon's office flagged re: + UA but negative culture. Electrocardiogram Date: 06/14/20 Findings: + NSR @ (67bpm) No significant change from 2018. Chest X-Ray Date: 06/14/20 Findings: + NAD Cervical Spine Date: 07/21/18 IMPRESSION: 1. No acute osseous abnormality is identified. 2. Osteopenia and mild degenerative change as above. 3. There is minimal anterolisthesis at C2-C3 and C3-C4 seen on the flexion images. This was not apparent on the neutral extension images. 4. The atlantodental articulation appears maintained.
[2020-06-14 10:18] LABS: Basophils # (auto) 0.03 K/uL (0-0.2); Basophils % (auto) 0.4 %; Eosinophils # (auto) 0.37 K/uL (0-0.5); Eosinophils % (auto) 5.4 %; Hematocrit (blood only) 48.7 % (37-47); Hemoglobin 16.1 g/dL (12.0-16.0); Immature Granulocytes # (auto) 0.01 K/uL (0.00-0.02); Immature Granulocytes % (auto) 0.1 %; Lymphocytes # (auto) 1.77 K/uL (1.2-3.4); Lymphocytes % (auto) 25.7 %; Mean Corpuscular Hemoglobin 32.7 pg (25-34); Mean Corpuscular Hgb Conc 33.1 g/dL (32-36); Mean Corpuscular Volume 98.8 fL (80-100); Mean Platelet Volume 10.5 fL (7.4-10.4); Monocytes # (auto) 0.72 K/uL (0.11-0.59); Monocytes % (auto) 10.4 %; Platelet Count 315 K/uL (130-400); RDW Coefficient of Variation 13.4 % (11.5-14.5); RDW Standard Deviation 48.2 fL (36.4-46.3); Red Blood Count 4.93 M/uL (4.2-5.4)
[2020-06-14 10:24] LABS: Appearance Urine Cloudy (Clear); Bacteria Urine Automated 2+ (Negative); Bilirubin Urine Negative (Negative); Blood Urine Negative (Negative); Color Urine Yellow; Epithelial Cell Urine Auto >30 /lpf (0-5); Glucose Urine UA Negative (Negative); Ketones Urine Negative (Negative); Leukocyte Esterase Urine 2+ (Negative); Nitrite Urine Negative (Negative); Protein Urine Negative (Negative); Specific Gravity Urine 1.016 (1.000-1.030); Urobilinogen Urine Negative (Negative)
--- NOTE | 2020-06-14 10:25 | XRay Report ---
XR chest Pre-admission PA/Lat CLINICAL HISTORY: Preoperative chest COMPARISON STUDY: 07/21/2018 FINDINGS: The heart is mildly enlarged. There is no failure. There is no focal pulmonary consolidatio n. There are no pleural effusions. There is minor basilar atelectasis.[ IMPRESSION: No active disease in the chest. ACT 112: Negative or not required by law. Electronically signed by: Matt Bravo M.D. 06/14/2020 10:20 AM
[2020-06-14 11:38] LABS: RBC Urine Automated 0-4 /hpf (0-4)
--- NOTE | 2020-06-14 12:30 | Electrocardiogram Report ---
Test Reason : Blood Pressure : / mmHG Vent. Rate : 067 BPM Atrial Rate : 067 BPM P-R Int : 138 ms QRS Dur : 074 ms QT Int : 396 ms P-R-T Axes : 063 050 035 degrees QTc Int : 418 ms Normal sinus rhythm Normal ECG When compared with ECG of 21-JUL-2018 11:01, No significant change was found Confirmed by Johnny Grier ([id number]) on 06/14/2020 12:29:51 PM Referred By: Carmine Davis Confirmed By:Johnny Grier
[2020-06-14 12:46] LABS: BUN Creatinine Ratio 10.6 (10-20); Calcium 9.5 mg/dl (8.5-10.1); Creatinine Clr Calc Pharmacy 68.8 ml/min; Est GFR (African American) 96.8; Est GFR (Non-African American) 83.5; Potassium 4.5 mmol/L (3.5-5.1)
--- NOTE | 2020-07-18 16:43 | History & Physical Report ---
Date of Service July 18, 2020 Assessment & Plan (1) Left ankle instability: Schedule a Left Ankle Arthroscopy Synovectomy, Open modified Brostrom Procedure with Arthrex Internal Brace, Excision Avulsion Fracture Lateral Malleolus for 07.19.2020. All potential risks, benefits, complications, alternatives, and rehab have been discussed with the patient and she wishes to proceed. Will plan for ASA 81 mg BID x 4 wks for post op DVT prophylaxis. 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 She had failed all conservative management and later had an MRI that noted a left ATFL tear. She is now being set up for surgical tx. Allergies Allergy/AdvReac Type Severity Reaction Status Date / Time milk Allergy Unknown ANAPHYLAXIS Verified 07/11/20 09:12 prochlorperazine Allergy Unknown ANAPHYLAXIS Verified 07/11/20 09:12 bee pollen Allergy Anaphylaxis Verified 07/11/20 09:12 Home Medications Medication Instructions Recorded Confirmed Type aspirin 81 mg PO QPM 07/13/18 07/11/20 History rizatriptan 10 mg disintegrating 10 mg PO .COMPLEX 30 Days #9 tab 07/12/19 07/11/20 Rx tablet diclofenac sodium 1 % topical gel 4 gm TOP QID PRN #100 gm 01/16/20 07/11/20 Rx cyclobenzaprine 5 mg tablet 5 mg PO Q12H #60 tab 01/23/20 07/11/20 Rx propranolol 10 mg tablet 10 mg PO BID 30 Days #60 tab 02/09/20 07/11/20 Rx colloidal oatmeal 1 % topical cream See Rx Instructions TOP BID #226 gm 02/14/20 07/11/20 Rx meloxicam 7.5 mg tablet 7.5 mg PO DAILY PRN #30 tab 05/23/20 07/11/20 Rx paroxetine HCl 10 mg tablet 10 mg PO PM 05/23/20 07/11/20 History hydroxyzine pamoate 25 mg PO HS 06/06/20 07/11/20 History loratadine 10 mg PO PM 06/06/20 07/11/20 History acetaminophen 300 mg-codeine 30 mg 1 tab PO DAILY PRN tab 07/11/20 07/11/20 History tablet amoxicillin 500 mg capsule 500 mg PO BID 07/11/20 07/11/20 History Past Med/Surg History Medical History Anxiety Benign essential tremor Cardiomegaly Degenerative disc disease Depression Eczema Hx of blood clots Occipital neuralgia Osteoarthritis Rheumatoid arthritis Surgical History H/O ventral hernia repair History of section History of foot surgery History of repair of right rotator cuff History of tooth extraction History of total abdominal hysterectomy and bilateral salpingo-oophorectomy Family History Other No known health problems Denies family history of Ovarian cancer Prostate cancer Breast cancer Lung cancer Colorectal cancer Social History Smoking Status: Current every day smoker Tobacco Type: Cigarettes Cigarettes Per Day: 2-3 per day, attempting to quit before surgery; Second Hand Exposure: Yes; Hx Alcohol Use: No Hx Substance Use: No Preferred Language: Estonian Communication Ability: Effective Visual Impairment: Limited Hearing Ability: Normal Podiatric Medicine Professor Required: No Beliefs That Will Affect Care: None marital status: Current Living Situation: Personal Care Facility Current Living Situation Comment: lives with room mate current occupational status: unemployed other: ADOPTED Feels Safe at Home: Yes Assistive Devices: Cane and Glasses Physical Exam Constitutional: well developed and well nourished; no acute distress ENMT: external ear and nose normal, oropharynx normal Neck: trachea midline, no thyromegaly Respiratory: normal respiratory effort, lungs clear to auscultation Cardiovascular: Rate/Rhythm: regular rate and regular rhythm Gastrointestinal (Abdomen): normal bowel sounds, soft, nontender, no hepatosplenomegaly Musculoskeletal: Ankle: + joint line tenderness (ankle) (left ATFL), + anterior draw test positive (left) and + talar tilt test positive (left); ankle normal to inspection, no skin erythema and no ecchymosis Skin: no rashes, warm and dry Neurologic: normal touch/pain/proprioception Psychiatric: A+Ox3, euthymic affect Speech: normal rate/rhythm/volume of speech Lymphatic: no cervical or axillary lymphadenopathy
[~2020-07-19 07:27] MED LIST changes: -CEFAZOLIN 1000MG 1,000 MG/7.5 ML SYR IV SCH; -EpINEphrine HCL INJ 1 MG/ML 1ML SYRINGE ONE; -LACTATED RINGER'S 1,000 ML IV SCH; +LR 15ML/HR IV SCH; +ceFAZolin 1000MG 1,000 MG/7.5 ML SYR IV SCH; +ceFAZolin 2000MG 2,000 MG/15 ML SYR IV SCH
[2020-07-19] MEDS ORDERED: ROCURONIUM BROMIDE 10 MG/ML 5 ML VIAL IV ONE (08:05)
[2020-07-19] MEDS ORDERED: PROPOFOL IV EMULSION 10 MG/ML 20 ML VIAL IV ONE (08:05)
[2020-07-19] MEDS ORDERED: DEXAMETHASONE SOD INJ 4 MG/ML VIAL ONE (08:05)
[2020-07-19] MEDS ORDERED: ONDANSETRON INJ 2 MG/ML 2 ML VIAL ONE (08:05)
[2020-07-19] MEDS ORDERED: LIDOCAINE HCL 2% 2 ML VIAL/AMP(20MG/ML) INFIL ONE (08:05)
[2020-07-19] MEDS ORDERED: fentaNYL citrate 100 MCG/2 ML VIAL ONE ×2 (08:06→12:19)
[2020-07-19] MEDS ORDERED: MIDAZOLAM HCL 1 MG/ML 2ML VIAL ONE (08:06)
[2020-07-19] MEDS ORDERED: HYDROmorphone INJ 2 MG/ML SYR/VIAL IV PRN (09:04)
[2020-07-19] MEDS ORDERED: ONDANSETRON INJ 2 MG/ML 2 ML VIAL IV PRN ×2 (09:04→14:38)
[2020-07-19] MEDS ORDERED: ATROPINE SULFATE 0.1 MG/ML 10ML SYR IV PRN (09:04)
[2020-07-19] MEDS ORDERED: fentaNYL citrate 100 MCG/2 ML VIAL IV PRN (09:04)
[2020-07-19] MEDS ORDERED: ePHEDrine sulfate 50 MG/ML AMP IV PRN (09:04)
--- NOTE | 2020-07-19 09:10 | History & Physical Bridge Note ---
Date of Service July 19, 2020 History & Physical Bridge Note I have examined the patient, reviewed the History & Physical and in the interval since the performance of the History & Physical I have noted the following changes of clinical significance: no changes noted
[2020-07-19] MEDS ORDERED: BUPIVACAINE/EPINEPHRINE 0.5% MPF 1:200,000 30 ML VIAL ONE (10:00)
[2020-07-19] MEDS ORDERED: EpINEphrine HCL INJ 1 MG/ML 1ML SYRINGE ONE (10:01)
[2020-07-19] MEDS ORDERED: LIDOCAINE/EPINEPHRINE 1% 20 ML VIAL ONE (10:48)
[2020-07-19] MEDS ORDERED: BACITRACIN INJ 50,000 UNIT VIAL ONE ×2 (10:51→11:01)
[2020-07-19] MEDS ORDERED: SUGAMMADEX SODIUM 200 MG/2 ML VIAL IV ONE (12:15)
--- NOTE | 2020-07-19 12:59 | Post Operative Brief Note ---
Immediate Post Op Note v1 Date of Surgery July 19, 2020 Pre & Post Diagnosis Operation Date: 07/19/20 09:00 Pre-Op Diagnosis: Left Ankle Instability, Synovitis, Lateral Meniscoid Lesion, Closed Avulsion Fracture of Lateral Malleolus of Left Ankle with Nonunion, Tear of Anterior Talofibular Ligament of Left Lower Extremity Post-Op Diagnosis: Left Ankle Instability, Synovitis, Lateral Meniscoid Lesion, Closed Avulsion Fracture of Lateral Malleolus of Left Ankle with Nonunion, Tear of Anterior Talofibular Ligament of Left Lower Extremity I identified the patient and participated in the time-out.: Yes Procedure Operation Date: 07/19/20 09:00 Actual Procedures p Left Ankle Arthroscopy with Synovectomy, arthroscopic excision of lateral meniscoid Lesion(Left) - Carmine Davis DO s Open Brostrom Procedure with Arthrex Internal Brace, arthroscopic excision Avulsion Fracture Lateral Malleolus(Left) - Carmine Davis DO Surgeon Carmine Davis DO Program Therapist Marcel Marquez PA-C Estimated Blood Loss 1 Findings Consistent with Post-Op Diagnosis Specimens None Anesthesia Type General Regional Complications none Disposition Accompanied Patient To Recovery: Yes Disposition: Recovery Room
--- NOTE | 2020-07-19 13:45 | Operative Report (OR) ---
DATE OF OPERATION: 07/19/2020 PREOPERATIVE DIAGNOSES: 1. Left lateral ankle ligament instability. 2. Anterior talofibular ligament tear. 3. Synovitis. POSTOPERATIVE DIAGNOSES: 1. Left ankle lateral ligament instability. 2. Anterior talofibular ligament tear. 3. Synovitis. 4. Lateral meniscoid lesion. PROCEDURES PERFORMED: 1. Left ankle arthroscopy with synovectomy. 2. Arthroscopic resection of lateral meniscoid. 3. Arthroscopic removal of avulsion fracture of the lateral malleolus. 4. Open modified Brostrom reconstruction with the use of Arthrex internal brace. SURGEON: Carmine Davis DO. SHOWROOM EXECUTIVE DIRECTOR: Marcel Marquez PA-C who was present for patient positioning, sterile prep and drape, management of retractors and instruments. He was present through the critical portions of the case including wound closure, application of sterile dressing and transport of the patient to recovery. ANESTHESIA: General, regional. SPECIMENS: None. DRAINS: None. COMPLICATIONS: None. BLOOD LOSS: 1 mL. PERTINENT HISTORY: This is a 50-year-old female who sustained a twisting injury to her left ankle. She had difficulty with weightbearing and walking. She attempted and failed conservative management including use of a brace, observation, anti-inflammatories, rest, use of an assistive device. She had physician-directed home exercises. She eventually had an MRI, which demonstrated a tear of the anterior talofibular ligament with avulsion fracture to the distal lateral malleolus. She was also noted to have synovitis within the joint. She is scheduled for surgery as indicated. All potential risks, benefits, complications, alternatives, rehab potential for incomplete relief of symptoms, need for further surgery, DVT, PE, , persistent pain, swelling, scarring, weakness, neurovascular injury, wound complications, hardware failure, nonunion, malunion, bone fracture were discussed with the patient. The patient decided to proceed with the procedure as indicated. DESCRIPTION OF PROCEDURE: The patient had a regional anesthetic administered in the preop holding area, taken to the operative suite, placed supine on the operating room table. After review of consent and identification of proper operative site, the patient was anesthetized, LMA was placed. Tourniquet was placed high on the left thigh over cast padding. Left lower extremity was then sterilely prepped and draped in usual fashion, elevated and exsanguinated with an Esmarch bandage, tourniquet inflated to 325 mmHg. After surgical timeout was performed, an 11 blade scalpel was used to make an incision in the anteromedial aspect of the ankle joint followed by placement of blunt trocar and sleeve, camera and inflow. Under direct visualization, lateral portals were established using an 18 gauge spinal needle and then with a small 11 blade scalpel, incision was made followed by placement of a small blunt tipped probe. Upon first look, there was noted to be synovitis throughout and a symptomatic lateral meniscoid lesion. Next, a 3.5 mm sucker shaver was introduced and synovectomy was performed and a resection of the lateral meniscoid was also performed. Next, a blunt-tipped probe was then inserted and noted to be intact tibial and talar bone surfaces with healthy articular cartilage. There was noted to be an avulsion fracture adjacent to the lateral malleolus, clear evidence of nonunion. This avulsion fracture was then teased free with a small hemostat and then resected using a 3.5 mm sucker shaver. Next, the medial gutter was inspected and noted to be unremarkable. All particulate debris was then flushed from the joint. The scope was then removed and the excess fluid was expressed from the joint and the portal sites were closed using 4-0 nylon sutures. Next, a curvilinear incision was made with 15 blade scalpel at the distal lateral aspect of the lateral malleolus. The incision was deepened through subcutaneous tissue. Meticulous hemostasis was achieved with electrocautery. Full thickness skin flaps were developed with a 15 blade scalpel. Careful dissection was performed with tenotomy scissors down to the extensor retinaculum. The superficial peroneal retinaculum, which was then incised as well as the remnant of the anterior talofibular ligament was torn from the distal lateral aspect of the fibula. Next, the periosteal tissue, distal lateral aspect of the fibula was then sharply elevated to make a viable cuff of tissue. The lateral process of the talus was identified and then a balloon pilot hole was drilled for the 4.75 mm SwiveLock, which was then placed in the lateral process of the talus. The #2 FiberTape was then passed into the remnant of the anterior talofibular ligament and then passed over a flap of tissue at the distal lateral aspect of the fibula. #2 FiberWire was then used to plicate the calcaneofibular ligament, which was obviously attenuated due to the injury. Next, the foot was held in neutral dorsiflexion and slight eversion and the FiberTapes were then secured into a Bio-Tenodesis screw, placed into the lateral aspect of the fibula under direct visualization. Care was taken not to overtension the FiberTapes by passing a small mosquito hemostat underneath the FiberTapes. Next, the excess suture was then cut with a 15 blade scalpel. The #2 FiberWire suture was then passed under the superficial peroneal retinaculum in a [id number] fashion that were used to close the marginal tissue at the distal lateral aspect of the fibula. Sutures were then tied and then passed distally once again using a free needle to flatten the knot stack. The sutures were then tied and cut. Next, the site was irrigated with sterile normal saline until clear. Anterior drawer test was noted to be negative after stabilization and talar tilt test was also noted to be negative. The 2-0 Vicryl sutures were then used to close the margin anterior and posterior to the FiberTape internal brace construct and then the peroneal tendon sheath was then closed using interrupted 2-0 Vicryl. The site was then irrigated once again with sterile normal saline. The dermis was closed using buried interrupted 3-0 Vicryl, skin was closed using 4-0 nylon. A sterile compressive dressing and bulky Dre Watson plaster splint was applied overwrapped with an [place] wrap. Foot was held in neutral dorsiflexion with slight eversion. The tourniquet was released. The patient was awakened and taken to recovery in stable condition. I attest to the content of the Intraoperative Record and any orders documented therein. Any exception s are noted below.
--- NOTE | 2020-07-19 13:45 | Anesthesiology Progress Note ---
Date of Service July 19, 2020 Anesthesia Post Procedure Vital Signs Vital Signs: Temp Pulse Pulse Resp BP Pulse Ox 07/19/20 13:40 36.8 C 83 16 94/69 L 93 07/19/20 13:30 82 16 97/69 L 93 07/19/20 13:20 81 18 100/64 94 07/19/20 13:10 81 16 106/59 L 95 07/19/20 13:00 77 14 100/72 98 07/19/20 12:50 78 13 101/68 92 07/19/20 12:44 36.7 C 84 12 93/68 L 93 07/19/20 08:42 67 18 95/59 L 95 07/19/20 08:15 36.8 C 69 20 101/73 98 Transfer of Care Handoff Completed per policy Notes Mental Status: alert / awake / arousable and participated in evaluation Patient Amnestic to Procedure: Yes Nausea / Vomiting: adequately controlled Pain: adequately controlled Airway Patency, RR, SpO2: stable & adequate BP & HR: stable & adequate Hydration State: stable & adequate Anesthetic Complications: no major complications apparent and Pt Satisfied with anesthetic care
[2020-07-19] MEDS ORDERED: RIZATRIPTAN BENZOATE MLT 10 MG TAB PO PRN (14:38)
[2020-07-19] MEDS ORDERED: MAGNESIUM HYDROXIDE SUSP 30 ML UDC PO PRN (14:38)
[2020-07-19] MEDS ORDERED: METOCLOPRAMIDE HCL INJ 5 MG/ML 2 ML VIAL IV PRN (14:38)
[2020-07-19] MEDS ORDERED: DICLOFENAC SOD 1% GEL 100 GM TUBE EXT PRN (14:38)
[2020-07-19] MEDS ORDERED: NO NSAIDS SCH (14:38)
[2020-07-19] MEDS ORDERED: HYDROmorphone INJ 0.5 MG/0.5 ML SYR IV PRN (14:38)
[2020-07-19] MEDS ORDERED: diphenhydrAMINE Capsule 25 MG CAP PO PRN (14:38)
[2020-07-19] MEDS ORDERED: ALUMINUM/MAGNESIUM SUSP 30 ML UDC PO PRN (14:38)
[2020-07-19] MEDS ORDERED: NALOXONE HCL 0.4 MG/1 ML VIAL/CARP IV PRN (14:38)
[2020-07-19] MEDS ORDERED: bisacodyL 10 MG SUPP PR PRN (14:38)
[2020-07-19] MEDS: SODIUM CHLORIDE 0.9% 1000ML 1,000 ML IV SCH (14:57)
[2020-07-19] MEDS: ACETAMINOPHEN 500 MG TAB PO SCH (17:53)
[2020-07-19] MEDS: ceFAZolin 2000MG 2,000 MG/15 ML SYR IV SCH (18:18)
[2020-07-19] MEDS: SENNA 8.6 MG TAB PO SCH (21:32)
[2020-07-19] MEDS: CYCLOBENZAPRINE HCL 5 MG TAB PO SCH (21:32)
[2020-07-19] MEDS: EUCERIN CR 120 GM JAR EXT SCH (21:32)
[2020-07-19] MEDS: hydrOXYzine HCl 25 MG TAB PO SCH (21:33)
[2020-07-19] MEDS: LORATADINE 10 MG TAB PO SCH (21:33)
[2020-07-19] MEDS: AMOXICILLIN 500 MG CAP PO SCH (21:33)
[2020-07-19] MEDS: PARoxetine HCL 10 MG TAB PO SCH (21:33)
[2020-07-19] MEDS: PROPRANOLOL HCL 10 MG TAB PO SCH (21:33)
[2020-07-19] MEDS: ASPIRIN 81 MG ECTAB PO SCH (21:33)
[2020-07-19] MEDS: DOCUSATE SODIUM 100 MG CAP PO SCH (21:47)
[2020-07-20] MEDS: ACETAMINOPHEN 500 MG TAB PO SCH ×4 (00:10→23:48)
[2020-07-20] MEDS: ceFAZolin 2000MG 2,000 MG/15 ML SYR IV SCH (02:09)
[2020-07-20] MEDS: SODIUM CHLORIDE 0.9% 1000ML 1,000 ML IV SCH (02:46)
[2020-07-20] MEDS: AMOXICILLIN 500 MG CAP PO SCH ×2 (08:51→21:31)
[2020-07-20] MEDS: CYCLOBENZAPRINE HCL 5 MG TAB PO SCH ×2 (08:53→21:31)
[2020-07-20] MEDS: DOCUSATE SODIUM 100 MG CAP PO SCH ×2 (08:53→21:30)
[2020-07-20] MEDS: ASPIRIN 81 MG ECTAB PO SCH ×2 (08:53→21:32)
[2020-07-20] MEDS: EUCERIN CR 120 GM JAR EXT SCH ×2 (08:54→21:32)
[2020-07-20] MEDS: PROPRANOLOL HCL 10 MG TAB PO SCH ×2 (08:54→21:31)
[2020-07-20] MEDS: MULTIVITAMIN TAB PO SCH (08:55)
--- NOTE | 2020-07-20 12:53 | Orthopedic Progress Note ---
Date of Service July 20, 2020 Assessment & Plan (1) Left ankle instability: s/p Open Brostrom Procedure with Arthrex Internal Brace, Excision Avulsion Fracture Lateral Malleolus PT/OT - Non WB left lower extremity DVT prophylaxis- SCDs, TEDs, ASA Plan for discharge on wednesday to [facility] after insurance approval Admission and Anticipated Discharge Date Admission Date: July 19, 2020 Subjective pod #1 Sitting at side of bed eating breakfast. No complants. No CP, SOB, N/V Physical Exam Physical Exam: Toes mobile, NVI. Calves soft, non tender. splint in place. Results & Data ([facility]) Vital Signs (Past 12 Hours) Vital Signs Temp Pulse Resp BP Pulse Ox 07/20/20 11:00 36.4 C L 72 16 95/55 L 92 07/20/20 03:14 36.5 C 80 18 95/61 L 96
[2020-07-20] MEDS: LORATADINE 10 MG TAB PO SCH (21:30)
[2020-07-20] MEDS: SENNA 8.6 MG TAB PO SCH (21:31)
[2020-07-20] MEDS: PARoxetine HCL 10 MG TAB PO SCH (21:31)
[2020-07-20] MEDS: hydrOXYzine HCl 25 MG TAB PO SCH (21:32)
[2020-07-21] MEDS: oxyCODONE HCL IR 5 MG TAB (IMMEDIATE RELEASE) PO PRN (06:15)
[2020-07-21] MEDS: ACETAMINOPHEN 500 MG TAB PO SCH ×2 (08:48→16:58)
[2020-07-21] MEDS: DOCUSATE SODIUM 100 MG CAP PO SCH ×3 (08:48→20:56)
[2020-07-21] MEDS: PROPRANOLOL HCL 10 MG TAB PO SCH ×2 (08:48→21:00)
[2020-07-21] MEDS: ASPIRIN 81 MG ECTAB PO SCH ×2 (08:48→21:01)
[2020-07-21] MEDS: CYCLOBENZAPRINE HCL 5 MG TAB PO SCH ×2 (08:49→21:00)
[2020-07-21] MEDS: MULTIVITAMIN TAB PO SCH (08:49)
[2020-07-21] MEDS: EUCERIN CR 120 GM JAR EXT SCH ×2 (08:49→21:01)
[2020-07-21] MEDS: AMOXICILLIN 500 MG CAP PO SCH ×2 (08:49→21:00)
--- NOTE | 2020-07-21 09:17 | Orthopedic Progress Note ---
Date of Service July 21, 2020 Assessment & Plan (1) Left ankle instability: s/p Open Brostrom Procedure with Arthrex Internal Brace, Excision Avulsion Fracture Lateral Malleolus PT/OT - Non WB left lower extremity DVT prophylaxis- SCDs, TEDs, ASA Plan for discharge on wednesday to [facility] after insurance approval She would like to get covid vaccine at [facility] if available. Admission and Anticipated Discharge Date Admission Date: July 19, 2020 Subjective pod #2 Laying in bed eating breakfast. No complaints. No CP, SOB, N/V Physical Exam Physical Exam: Toes mobile, NVI. Calves soft, non tender. splint in place. Results & Data ([facility]) Vital Signs (Past 12 Hours) Vital Signs Temp Pulse Pulse Resp BP Pulse Ox 07/21/20 07:00 36.4 C L 76 18 104/64 94 07/20/20 23:24 36.6 C 78 16 103/65 92
[2020-07-21] MEDS: PARoxetine HCL 10 MG TAB PO SCH (21:00)
[2020-07-21] MEDS: hydrOXYzine HCl 25 MG TAB PO SCH (21:00)
[2020-07-21] MEDS: LORATADINE 10 MG TAB PO SCH (21:00)
[2020-07-21] MEDS: SENNA 8.6 MG TAB PO SCH (21:01)
[2020-07-22] MEDS: oxyCODONE HCL IR 5 MG TAB (IMMEDIATE RELEASE) PO PRN ×2 (00:31→20:29)
[2020-07-22] MEDS: ACETAMINOPHEN 500 MG TAB PO SCH ×4 (00:44→23:41)
--- NOTE | 2020-07-22 07:06 | Orthopedic Progress Note ---
Date of Service July 22, 2020 Assessment & Plan (1) Left ankle instability: POD#3 s/p left ankle arthroscopy, Open Brostrom Procedure with Arthrex Internal Brace, Excision Avulsion Fracture Lateral Malleolus PT/OT - Non WB left lower extremity DVT prophylaxis- SCDs, TEDs, ASA Plan for discharge once SNF authorization obtained for [facility]. Likely today, will see how she does later today She would like to get covid vaccine at [facility] if available. Admission and Anticipated Discharge Date Admission Date: July 19, 2020 Subjective pod #3 Laying in bed eating breakfast. Some increased pain today. She is concerned about possible discharge today as she is worried about fall risk. No CP, SOB, N/V Review of Systems Review of Systems: All systems reviewed & are unremarkable except as noted in HPI & below Physical Exam Physical Exam: Left ankle dressing/splint is c/d/i. No calf tenderness. Toes are mobile, cap refill <3s, sensation intact. Constitutional: well developed and well nourished; no acute distress Results & Data ([facility]) Vital Signs (Past 12 Hours) Vital Signs Temp Pulse Resp BP BP Pulse Ox 07/22/20 06:54 36.8 C 66 19 111/70 94 07/21/20 23:08 36.7 C 76 19 97/64 L 96
--- NOTE | 2020-07-22 08:27 | Orthopedic Progress Note ---
Date of Service July 22, 2020 Assessment & Plan (1) Left ankle instability: POD#3 s/p left ankle arthroscopy, Open Brostrom Procedure with Arthrex Internal Brace, Excision Avulsion Fracture Lateral Malleolus PT/OT - Non WB left lower extremity DVT prophylaxis- SCDs, TEDs, ASA Plan for discharge once SNF authorization obtained for [facility]. Will plan for today. Admission and Anticipated Discharge Date Admission Date: July 19, 2020 Subjective Pain is controlled. Has some pain at the lateral ankle that she can feel the stitches. She is concerned about possible discharge today as she is worried about fall risk. No CP, SOB, N/V Physical Exam Constitutional: well developed and well nourished; no acute distress ENMT: external ear and nose normal, oropharynx normal Neck: trachea midline, no thyromegaly Respiratory: normal respiratory effort, lungs clear to auscultation Cardiovascular: Rate/Rhythm: regular rate and regular rhythm Gastrointestinal (Abdomen): normal bowel sounds, soft, nontender, no hepatosplenomegaly Musculoskeletal: Ankle: + surgical incision (Left ankle: Splint C/D/I.); ankle normal to inspection, no skin erythema and no ecchymosis Skin: no rashes, warm and dry Neurologic: normal touch/pain/proprioception Psychiatric: A+Ox3, euthymic affect Speech: normal rate/rhythm/volume of speech Lymphatic: no cervical or axillary lymphadenopathy Results & Data ([facility]) Vital Signs (Past 12 Hours) Vital Signs Temp Pulse Resp BP BP Pulse Ox 07/22/20 06:54 36.8 C 66 19 111/70 94 07/21/20 23:08 36.7 C 76 19 97/64 L 96
[2020-07-22] MEDS: DOCUSATE SODIUM 100 MG CAP PO SCH ×2 (09:02→20:17)
[2020-07-22] MEDS: AMOXICILLIN 500 MG CAP PO SCH ×2 (09:03→20:24)
[2020-07-22] MEDS: ASPIRIN 81 MG ECTAB PO SCH ×2 (09:04→20:25)
[2020-07-22] MEDS: MULTIVITAMIN TAB PO SCH (09:06)
[2020-07-22] MEDS: PROPRANOLOL HCL 10 MG TAB PO SCH ×2 (09:13→20:25)
[2020-07-22] MEDS: EUCERIN CR 120 GM JAR EXT SCH ×2 (09:14→20:25)
[2020-07-22] MEDS: CYCLOBENZAPRINE HCL 5 MG TAB PO SCH ×2 (09:48→20:24)
[2020-07-22] MEDS: SENNA 8.6 MG TAB PO SCH (20:18)
[2020-07-22] MEDS: PARoxetine HCL 10 MG TAB PO SCH (20:24)
[2020-07-22] MEDS: hydrOXYzine HCl 25 MG TAB PO SCH (20:24)
[2020-07-22] MEDS: LORATADINE 10 MG TAB PO SCH (20:25)
[2020-07-23] MEDS: oxyCODONE HCL IR 5 MG TAB (IMMEDIATE RELEASE) PO PRN (09:47)
[2020-07-23] MEDS: CYCLOBENZAPRINE HCL 5 MG TAB PO SCH (09:48)
[2020-07-23] MEDS: ASPIRIN 81 MG ECTAB PO SCH (09:48)
[2020-07-23] MEDS: AMOXICILLIN 500 MG CAP PO SCH (09:48)
[2020-07-23] MEDS: ACETAMINOPHEN 500 MG TAB PO SCH (09:48)
[2020-07-23] MEDS: DOCUSATE SODIUM 100 MG CAP PO SCH (09:49)
[2020-07-23] MEDS: PROPRANOLOL HCL 10 MG TAB PO SCH (09:49)
[2020-07-23] MEDS: EUCERIN CR 120 GM JAR EXT SCH (09:49)
[2020-07-23] MEDS: MULTIVITAMIN TAB PO SCH (09:49)
--- NOTE | 2020-07-23 14:31 | Orthopedic Progress Note ---
Date of Service July 23, 2020 Assessment & Plan (1) Left ankle instability: POD#4 s/p left ankle arthroscopy, Open Brostrom Procedure with Arthrex Internal Brace, Excision Avulsion Fracture Lateral Malleolus PT/OT - Non WB left lower extremity DVT prophylaxis- SCDs, TEDs, ASA Plan for discharge once SNF authorization obtained for [facility]. Will plan for today. Admission and Anticipated Discharge Date Admission Date: July 19, 2020 Subjective Post Operative Progress Note Patient seen sitting up in bed, comfortable, denies complaints, pain well controlled, no acute issues. Review of Systems Review of Systems: All systems reviewed & are unremarkable except as noted in HPI & below Constitutional: as per Subjective / HPI Physical Exam Physical Exam: LLE NVSI splint in place, compartments soft NT Constitutional: WD/WN, vitals as above Results & Data ([facility]) Vital Signs (Past 12 Hours) Vital Signs Temp Pulse Resp BP Pulse Ox 07/23/20 07:26 36.7 C 77 18 110/59 L 92
--- NOTE | 2020-07-29 11:01 | Discharge Summary ---
Date of Service July 29, 2020 Admission HPI Per Admitting Provider This is a patient who had been treated conservatively for left ankle instability. She had failed all conservative management and later had an MRI that noted a left ATFL tear. She is now being set up for surgical tx. Principal Diagnosis left ankle instability Discharge Exam Constitutional well developed and well nourished; no acute distress ENMT external ear and nose normal, oropharynx normal Neck trachea midline, no thyromegaly Respiratory normal respiratory effort, lungs clear to auscultation Cardiovascular Rate/Rhythm: regular rate and regular rhythm Gastrointestinal (Abdomen) normal bowel sounds, soft, nontender, no hepatosplenomegaly Musculoskeletal Ankle: + surgical incision (Left ankle: Splint C/D/I.); ankle normal to inspection, no skin erythema and no ecchymosis Skin no rashes, warm and dry Neurologic normal touch/pain/proprioception Psychiatric A+Ox3, euthymic affect Speech: normal rate/rhythm/volume of speech Lymphatic no cervical or axillary lymphadenopathy Discharge Data Allergies Allergy/AdvReac Type Severity Reaction Status Date / Time milk Allergy Unknown ANAPHYLAXIS Verified 07/19/20 08:07 prochlorperazine Allergy Unknown ANAPHYLAXIS Verified 07/19/20 08:07 bee pollen Allergy Anaphylaxis Verified 07/19/20 08:07 Consultations 07/19/20 09:11 Consult Case Management - Discharge Planning Stat 07/19/20 14:38 Consult Case Management - Discharge Planning Routine Procedures Performed Operation Date: 07/19/20 09:00 Actual Procedures p Left Ankle Arthroscopy Synovectomy and Excision of Meniscoid Lesion(Left) - Carmine Linton DO s Open Brostrom Procedure with Arthrex Internal Brace, Excision Avulsion Fracture Lateral Malleolus(Left) - Carmine Linton DO Ordered Studies 07/19/20 05:00 US - OR guided needle placemen Stat Hospital Course (1) Left ankle instability: Patient was admitted after the above noted procedure for PT/OT and recommendations on rehab vs. SNF. Her pain was controlled throughout the stay. She progressed slowly with PT. She was recommended for a SNF stay for rehabilitation. Insurance authorization was obtained on POD #4 and a bed was available at [facility] at that time. She was discharged later that day. POD#4 s/p left ankle arthroscopy, Open Brostrom Procedure with Arthrex Internal Brace, Excision Avulsion Fracture Lateral Malleolus PT/OT - Non WB left lower extremity DVT prophylaxis- SCDs, TEDs, ASA Plan for discharge once SNF authorization obtained for neris. Will plan for today. Total Time Total Time Spent Total Time Spent (In Minutes): 90 Total Time Includes: Examination of the Patient, Discharge Planning and Medication Reconciliation Discharge Plan Discharge Items Patient Disposition: Transfer [facility] Reason For Visit: Sprain Ligament Left Ankle, Fracture of Lateral Ma Discharge Diagnosis: left ankle instability Activity: Per Instructions section Non-emergency contact: Surgeon Call non-emergency contact if: your pain is not controlled, your pain is worsening, you have a fever, your temperature is above 101 and your wound pain has increased Follow-up/Referrals: Vincenzo Forbes DO [Primary Care Provider] - Diet: Regular Addtl Attending Provider Instructions: ACTIVITY RECOMMENDATIONS: Limitations: No weight bearing to affected limb at all times. SPECIAL CARE INSTRUCTIONS: * Take Aspirin 81 mg every 12 hours for 4 weeks. Start first dose tonight. * Some drainage onto the dressing is normal and is no cause for alarm. * Some swelling is natural especially after walking. * When resting, keep your foot elevated above the level of your heart. * Call [facility] if you notice: -Increased drainage -Fever over 101 degrees F -Severe constant pain BANDAGE: * Leave bandage/cast in place unless otherwise directed. * Keep bandage/cast dry at all times. FOLLOW UP VISIT WITH DR. LINTON If appointment is not already scheduled: Please call [facility] after you get home today to schedule a follow-up appointment for [address] Linton at . Pending Studies at Discharge: No Stand-Alone Forms: My [facility] [employer] Skilled Items Patient informed of condition?: Yes DNR: No Discharge Level of Care: Skilled Communicable Disease: No Discharge Prognosis: Improving Lines: None Urinary Catheter: No Medications and DC Order Prescriptions: New aspirin 81 mg Tablet,Delayed Release (Dr/Ec) 81 mg PO BID Qty: 60 RF: 0 acetaminophen 500 mg Tablet 1,000 mg PO Q8H Qty: 60 RF: 0 oxycodone 5 mg capsule 5 mg PO Q4H MDD 6 PRN (Reason: pain) Qty: 20 RF: 0 Continued propranolol 10 mg tablet 10 mg PO BID 30 Days Qty: 60 RF: 5 rizatriptan 10 mg tablet,disintegrating 10 mg PO .COMPLEX 30 Days Qty: 9 RF: 5 cyclobenzaprine 5 mg tablet 5 mg PO Q12H Qty: 60 RF: 5 Eucerin Eczema Relief 1 % cream See Rx Instructions TOP BID Qty: 226 RF: 5 paroxetine HCl 10 mg tablet 10 mg PO PM RF: 0 meloxicam [Mobic] 7.5 mg tablet 7.5 mg PO DAILY PRN (Reason: pain) Qty: 30 RF: 2 amoxicillin 500 mg capsule 500 mg PO BID RF: 0 hydroxyzine pamoate 25 mg Capsule 25 mg PO HS RF: 0 loratadine 10 mg capsule 10 mg PO PM RF: 0 Discontinued diclofenac sodium 1 % gel 4 gm TOP QID PRN (Reason: pain) Qty: 100 RF: 0 acetaminophen-codeine 300-30 mg tablet 1 tab PO DAILY PRN (Reason: Pain) RF: 0 aspirin 81 mg Tablet,Delayed Release (Dr/Ec) 81 mg PO QPM RF: 0 Discharge Orders: Discharge Order (Routine); Ordered 07/23/20 Ordered By: Maverick Freeman/Other Patient Handouts: How [facility] Admission Data Admit Date/Time: 07/19/20 12:53 Attending Provider: Cramine Linton Admit Provider: Carmine Linton Primary Care Provider: Vincenzo Forbes Other Interventions: Discharge Summary Assessment (RN) Last Done: 07/23/20 15:09
== END 2020-07-23 16:22 ==
LOC: ASU 07:27 → 3W 12:53 → INTOOBSV 12:53